=== PATIENT | male | born 1955 | race Caucasian/White ===

== ENCOUNTER → 2017-03-17 | Outpatient (CLI) | payer BC ==
[~2017-03-17] MED LIST: ASPCH81X PO; HYDC25 PO; LISI-725 PO; MCRKUNK; MULT-506 PO; OXYC-57 PO; PRLSR20 PO; SIMV20TA2 PO; ULT/50 PO
--- NOTE | 2017-03-24 06:47 | CODING QUERY NO DIAGNOSIS ---
TREATMENT RENDERED WITHOUT A DIAGNOSIS To promote full compliance with coding requirements relating to patient care, physician participation is requested in all cases of auditing coder uncertainty. Please assist us with providing a diagnosis/symptom for the test(s) below: A diagnosis/symptom was not documented on your Order. A valid diagnosis/symptom is required to bill all insurances. Please remember that we are unable to code a diagnosis of rule out, probable, possible, questionable, or suspected. Tests that require a diagnosis: DOS 03/17 * Synovial fluid crystals DIAGNOSIS: Provider Signature: Date: Thank you Fouzia [facility] Information Management Once completed, please kindly fax back to [phone] For questions please call [phone]
== END | disposition home or self-care (01) ==
LOC: C.LABSPEC 17:02
PROVIDERS: ATTEND Orthopaedic Surgery
DX: M65.841 Other synovitis and tenosynovitis, right hand (principal)

== ENCOUNTER 2019-02-11 08:38 | Inpatient (IN) ==
--- NOTE | 2019-01-15 13:26 | PAT Medication Instructions ---
Medication Instructions Date of Service January 15, 2019 Home Medications aspirin [Aspir-81] 81 mg PO QAM 01/08/19 [History Confirmed 01/08/19] atorvastatin 20 mg PO QAM 01/08/19 [History Confirmed 01/08/19] hydrochlorothiazide 50 mg PO QAM 01/08/19 [History Confirmed 01/08/19] lisinopril 40 mg PO QAM 01/08/19 [History Confirmed 01/08/19] naproxen 500 mg PO BID 01/08/19 [History Confirmed 01/08/19] nebivolol [Bystolic] 5 mg PO QAM 01/08/19 [History Confirmed 01/08/19] omeprazole 20 mg PO BID 01/08/19 [History Confirmed 01/08/19] pregabalin [Lyrica] 75 mg PO QPM 01/08/19 [History Confirmed 01/08/19] ASK your surgeon for instructions naproxen 500 mg PO BID 01/08/19 [History Confirmed 01/08/19] DO NOT take the morning of surgery hydrochlorothiazide 50 mg PO QAM 01/08/19 [History Confirmed 01/08/19] lisinopril 40 mg PO QAM 01/08/19 [History Confirmed 01/08/19] Take morning of surgery With a small sip of water, OTHERWISE NOTHING TO EAT OR DRINK AFTER MIDNIGHT: aspirin [Aspir-81] 81 mg PO QAM 01/08/19 [History Confirmed 01/08/19] atorvastatin 20 mg PO QAM 01/08/19 [History Confirmed 01/08/19] nebivolol [Bystolic] 5 mg PO QAM 01/08/19 [History Confirmed 01/08/19] omeprazole 20 mg PO BID 01/08/19 [History Confirmed 01/08/19] Take evening before surgery omeprazole 20 mg PO BID 01/08/19 [History Confirmed 01/08/19] pregabalin [Lyrica] 75 mg PO QPM 01/08/19 [History Confirmed 01/08/19] Other Notes If you have any questions please call us at [phone] or [phone] or [phone] or [phone]
--- NOTE | 2019-01-16 09:11 | Anesthesiology Consultation ---
Date of Service January 16, 2019 Assessment & Plan (1) Encounter for pre-operative examination: - Awaiting review preop testing (labs, EKG, CXR). - Awaiting surgeon-ordered PCP preop evaluation (SUHAS Arboleda). Chart Review Chart Review: Patient seen in Pre Admission Testing Teaching & Discussion Pre-Anesthesia Teaching/Discussion Notes: Instructed NPO after midnight before surgery,except medications with 15 cc of water. Medication instructions provided according to the PAT guidelines. History Surgery Operation Date: 02/11/19 07:00 Proposed Procedures p Right Total Knee Revision Arthroplasty - Cristian Adan DO Height/Weight Height: 5 ft 8 in Weight: 111.9 kg Allergies Allergy/AdvReac Type Severity Reaction Status Date / Time No Known Allergies Verified 01/08/19 08:30 Medications Home Medications Medication Instructions Recorded Confirmed Last Taken aspirin [Aspir-81] 81 mg PO QAM 01/08/19 01/08/19 Unknown atorvastatin 20 mg PO QAM 01/08/19 01/08/19 Unknown hydrochlorothiazide 50 mg PO QAM 01/08/19 01/08/19 Unknown lisinopril 40 mg PO QAM 01/08/19 01/08/19 Unknown naproxen 500 mg PO BID 01/08/19 01/08/19 Unknown nebivolol [Bystolic] 5 mg PO QAM 01/08/19 01/08/19 Unknown omeprazole 20 mg PO BID 01/08/19 01/08/19 Unknown pregabalin [Lyrica] 75 mg PO QPM 01/08/19 01/08/19 Unknown Past Medical History Medical History GERD (gastroesophageal reflux disease) occasional Hyperlipidemia Hypertension Obesity Osteoarthritis Exercise / Class Metabolic Activity II 4-5 Yardwork/Stairs/Walk up hill (one flight of stairs (no chest pain/no sob)) Past Family History Family History Other No significant family history Past Surgical History Surgical History History of carpal tunnel release RT/LEFT History of colonoscopy History of hand surgery TENDON REPAIR RT INDEX FINGER History of tonsillectomy and adenoidectomy History of total knee replacement RT Hx of shoulder surgery RT SHOULDER PARTIAL REPLACEMENT Past Anesthesia History No Hx of Anesthesia Complications (except PONV) and No Family Hx of Anesthesia Complications History of PONV History of PONV and Hx of Motion Sickness Social History Smoking Status: Former smoker tobacco type: cigarettes Do You Dip or Chew Tobacco: No Smoking End Date: QUIT OVER 40 YEARS AGO Hx Alcohol Use: Yes Alcohol type: wine alcohol intake frequency: a few times a month Hx Substance Use: No substance use type: does not use Review of Systems Occasional reflux. Patient denies chest pain, shortness of breath, dyspnea on exertion, cough, wheezing, palpitations. Physical Exam Vital Signs VITALS BP 146/88 P 50 (chronic, asymptomatic per patient) TEMP 98.5 SP02 96%RA RESP 16 PHYSICAL Full neck and c-spine range of motion. Full TMJ range of motion. TMD 3.5 finger breaths Mallampati Score 2 Dentition: intact, several crowns "all over" Lungs: clear throughout to auscultation Cardiac: + bradycardia, regular rhythm, no murmurs noted Spine: normal Carotid arteries: negative bruit Extremities: no edema
--- NOTE | 2019-01-16 09:48 | XRay Report ---
XR chest Pre-admission PA/Lat HISTORY: Preop. COMPARISON: Chest 10/18/2011. FINDINGS: The lungs are clear. Cardiac silhouette is normal in size. No pleural effusions. No pneumot horax. A right shoulder prosthesis is partially visualized. IMPRESSION: No acute process. Electronically signed by: Lionel Fiore M.D. 01/16/2019 9:47 AM
[2019-01-16 10:39] LABS: Basophils # (auto) 0.03 K/uL (0-0.2); Basophils % (auto) 0.4 %; Eosinophils # (auto) 0.53 K/uL (0-0.5); Eosinophils % (auto) 6.3 %; Hematocrit (blood only) 45.5 % (42-52); Hemoglobin 15.2 g/dL (14.0-18.0); Immature Granulocytes # (auto) 0.02 K/uL (0.00-0.02); Immature Granulocytes % (auto) 0.2 %; Lymphocytes # (auto) 2.36 K/uL (1.2-3.4); Lymphocytes % (auto) 28.2 %; Mean Corpuscular Hemoglobin 30.9 pg (25-34); Mean Corpuscular Hgb Conc 33.4 g/dL (32-36); Mean Corpuscular Volume 92.5 fL (80-100); Mean Platelet Volume 10.4 fL (7.4-10.4); Monocytes # (auto) 0.61 K/uL (0.11-0.59); Monocytes % (auto) 7.3 %; Neutrophils # (auto) 4.81 K/uL (1.4-6.5); Neutrophils % (auto) 57.6 %; Platelet Count 286 K/uL (130-400); RDW Coefficient of Variation 13.2 % (11.5-14.5); Red Blood Count 4.92 M/uL (4.7-6.1); White Blood Count 8.36 K/uL (4.8-10.8)
[2019-01-16 10:44] LABS: Albumin Level 3.8 gm/dl (3.4-5.0); BUN Creatinine Ratio 17.4 (10-20); Calcium 9.1 mg/dl (8.5-10.1); Creatinine Clr Calc Pharmacy 74.6 ml/min; Est GFR (Non-African American) 62.1; Potassium 3.7 mmol/L (3.5-5.1)
[2019-01-16 10:48] LABS: Partial Thromboplastin Time 26.5 Seconds (21.0-31.0); Prothrombin Time 10.1 Seconds (9.0-12.0)
[2019-01-16 10:51] LABS: Appearance Urine Clear (Clear); Bilirubin Urine Negative (Negative); Blood Urine Negative (Negative); Color Urine Yellow; Glucose Urine UA Negative (Negative); Ketones Urine Negative (Negative); Leukocyte Esterase Urine Negative (Negative); Nitrite Urine Negative (Negative); Protein Urine Negative (Negative); Specific Gravity Urine 1.025 (1.000-1.030); Urobilinogen Urine Negative (Negative)
[2019-01-16 11:14] LABS: Estimated Average Glucose 120 mg/dl; Hemoglobin A1C 5.8 % (4.5-5.6)
--- NOTE | 2019-02-10 13:04 | History & Physical Report ---
Date of Service February 10, 2019 Assessment & Plan (1) Failed total right knee replacement: I have indicated the patient for revision right total knee replacement, poly exchange, possible revision of femur and tibial components. The risks, benefits and complications of surgery were explained to the patient which include but not limited to infection, acute blood loss, DVT/PE, injury to nerves, vessels, bone, soft tissue, arthrofibrosis, chronic pain, failure of the prosthesis, knee dislocation, leg length discrepancy, need for additional surgery, cardiac and pulmonary events and . The patient wished to proceed with surgery and informed consent was obtained at this time. We will plan for ASA BID post-operatively for DVT prophylaxis. Upon discharge the patient will be discharged home with home health services. Appropriate clearances by PCP were obtained. 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 The patient continues to demonstrate "jumping" of his post and giving out with pain. The patient has failed outpatient conservative treatments to this point which included NSAIDs, bracing and PT. The patient's pain and limited function have progressed to the point where they severely hinder their activities of daily living and they no longer tolerate exercise programs. They are requesting to proceed with revision total knee replacement surgery. Allergies Allergy/AdvReac Type Severity Reaction Status Date / Time No Known Allergies Verified 01/08/19 08:30 Home Medications Home Medications Medication Instructions Recorded Confirmed Type aspirin [Aspir-81] 81 mg PO QAM 01/08/19 01/08/19 History atorvastatin 20 mg PO QAM 01/08/19 01/08/19 History hydrochlorothiazide 50 mg PO QAM 01/08/19 01/08/19 History lisinopril 40 mg PO QAM 01/08/19 01/08/19 History naproxen 500 mg PO BID 01/08/19 01/08/19 History nebivolol [Bystolic] 5 mg PO QAM 01/08/19 01/08/19 History omeprazole 20 mg PO BID 01/08/19 01/08/19 History pregabalin [Lyrica] 75 mg PO QPM 01/08/19 01/08/19 History Past Med/Surg History Medical History GERD (gastroesophageal reflux disease) occasional Hyperlipidemia Hypertension Obesity Osteoarthritis Surgical History History of carpal tunnel release RT/LEFT History of colonoscopy History of hand surgery TENDON REPAIR RT INDEX FINGER History of tonsillectomy and adenoidectomy History of total knee replacement RT Hx of shoulder surgery RT SHOULDER PARTIAL REPLACEMENT Family History Other No significant family history Social History Preferred Language: Maori Communication Ability: Effective Energy Efficient Site Manager Required: No Beliefs That Will Affect Care: None Current Living Situation: Alone Other Information That Helps Us Care for You: No Feels Safe at Home: Yes Safety Concerns: Feels Safe At This Time Smoking Status: Former smoker Tobacco Type: cigarettes ; Do You Dip or Chew Tobacco: No ; Smoking End Date: QUIT OVER 40 YEARS AGO ; Second Hand Exposure: No ; Tobacco Cessation Education Requested by Patient: No Hx Alcohol Use: Yes Alcohol type: wine Hx Substance Use: No Review of Systems Review of Systems: All systems reviewed & are unremarkable except as noted in HPI & below Constitutional: as per Subjective / HPI Physical Exam Physical Exam: RLE NVSI +EHL/FHL/TA/GS SILT grossly, +2 DP pulse, compartments soft NT, incision cdi, +instability with mechanical symptoms and subluxation of the knee in relationship to the post, locking with spontaneous reduction with hyperflexion, +mechanical/audible clunk, ROM 0-135 degrees of flexion Constitutional: WD/WN, vitals as above Eyes: PERRL, conjunctivae normal, anicteric sclerae ENMT: external ear and nose normal, oropharynx normal Neck: trachea midline, no thyromegaly Respiratory: normal respiratory effort, lungs clear to auscultation Cardiovascular: RRR, no murmur, no edema Gastrointestinal (Abdomen): normal bowel sounds, soft, nontender, no hepatosplenomegaly Musculoskeletal: no cyanosis or clubbing, extremities motor strength 5/5 Skin: no rashes, warm and dry Neurologic: patellar DTR's 2+ bilat, sensation intact Psychiatric: A+Ox3, euthymic affect Lymphatic: no cervical or axillary lymphadenopathy Results & Data Diagnostic Findings Multiple views of the knee demonstrates well aligned well fixed total knee prosthesis without evidence of loosening, subsidence, fracture or dislocation.
[~2019-02-11 08:38] MED LIST changes: +ACETAMINOPHEN 500 MG TAB PO SCH; -ASPCH81X PO; +BUPIVACAINE 0.5 % 5 MG/1 ML PF 10ML VIAL ONE; +CEFAZOLIN 2000MG 2,000 MG/15 ML SYR IV SCH; +CeleBREX 200 MG CAP PO SCH; +FAMOTIDINE 20 MG TAB PO SCH; +GABAPENTIN 600 MG DOSE PO SCH; -HYDC25 PO; -LISI-725 PO; +LR 15ML/HR IV SCH; -MCRKUNK; +METOCLOPRAMIDE HCL 10 MG TABLET PO SCH; -MULT-506 PO; -OXYC-57 PO; -PRLSR20 PO; +ROPIVACAINE 0.5% 5 MG/ML 30 ML VIAL ONE; +ROPIVACAINE 0.5% HCL/PF 150 MG, BUPIVACAINE 0.5% MPF 30 ML, EPINEPHrine 30MG/30ML (OR U... INFIL SCH; -SIMV20TA2 PO; +TRANEXAMIC ACID 1,000 MG **IV Intra-op IV SCH; +TRANEXAMIC ACID 1,000 MG **IV Pre-op IV SCH; -ULT/50 PO; +dexAMETHasone 4 MG TAB PO SCH
--- NOTE | 2019-02-11 09:03 | History & Physical Bridge Note ---
Date of Service February 11, 2019 History & Physical Bridge Note I have examined the patient, reviewed the History & Physical and in the interval since the performance of the History & Physical I have noted the following changes of clinical significance: no changes noted
[2019-02-11] MEDS ORDERED: TRANEXAMIC ACID / 0.7% NACL 1000MG/100ML BAG IV ONE (09:44)
[2019-02-11] MEDS ORDERED: fentaNYL citrate 100 MCG/2 ML VIAL ONE (11:45)
[2019-02-11] MEDS ORDERED: MIDAZOLAM HCL 1 MG/ML 2ML VIAL ONE (11:45)
[2019-02-11] MEDS ORDERED: BACITRACIN INJ 50,000 UNIT VIAL ONE (12:05)
[2019-02-11] MEDS ORDERED: ORTHO JOINT ANESTHETIC ONE (12:05)
[2019-02-11] MEDS ORDERED: ONDANSETRON INJ 2 MG/ML 2 ML VIAL ONE (13:51)
[2019-02-11] MEDS ORDERED: PROPOFOL IV EMULSION 10 MG/ML 20 ML VIAL IV ONE (13:51)
[2019-02-11] MEDS ORDERED: LIDOCAINE HCL 2% 2 ML VIAL/AMP(20MG/ML) INFIL ONE (13:51)
[2019-02-11] MEDS ORDERED: ePHEDrine sulfate 50 MG/ML AMP IV PRN (13:56)
[2019-02-11] MEDS ORDERED: ATROPINE SULFATE 0.1 MG/ML 10ML SYR IV PRN (13:56)
--- NOTE | 2019-02-11 14:21 | Post Operative Brief Note ---
Immediate Post Op Note v1 Date of Surgery February 11, 2019 Pre & Post Diagnosis Operation Date: 02/11/19 11:40 Pre-Op Diagnosis: Right Total Knee Arthroplasty Recurrent Instability Post-Op Diagnosis: Right Total Knee Arthroplasty Recurrent Instability I identified the patient and participated in the time-out.: Yes Procedure Operation Date: 02/11/19 11:40 Actual Procedures p Right Total Knee Poly Exchange(Right) - Cristian Adan DO Revision of surgical scar Surgeon Cristian Adan DO Entry Examiner Delfin Alfaro Estimated Blood Loss 25 Findings Consistent with Post-Op Diagnosis Fluids 1400 cc LR Specimens tibial articular surface Anesthesia Type Spinal MAC Complications none Disposition Disposition: Recovery Room Overlapping Procedure I was present for: the critical portions of procedure. I was immediately available: during the entire case. Back up surgeon: was not required during procedure.
--- NOTE | 2019-02-11 14:28 | Operative Report ---
Post Operative Report Pre & Post Diagnosis Operation Date: 02/11/19 11:40 Pre-Op Diagnosis: Right Total Knee Arthroplasty Recurrent Instability Post-Op Diagnosis: Right Total Knee Arthroplasty Recurrent Instability I identified the patient and participated in the time-out.: Yes Procedure Operation Date: 02/11/19 11:40 Actual Procedures p Right Total Knee Poly Exchange(Right) - Cristian Adan DO Revision of surgical scar Surgeon Cristian Adan DO Software Implementation Project Manager Delfin Alfaro Estimated Blood Loss 25 Findings Consistent with Post-Op Diagnosis Fluids 1400 cc LR Specimens Tibial articular surface Anesthesia Type Spinal MAC Complications none Disposition Disposition: Recovery Room Indications The patient is a 63 year old male who presents with complaints of recurrent instability and pain of right total knee replacement. The patient continues to demonstrate "jumping" of his post and giving out with pain. The patient has failed outpatient conservative treatments to this point which included NSAIDs, bracing and PT. The patient's pain and limited function have progressed to the point where they severely hinder their activities of daily living and they no longer tolerate exercise programs. They are requesting to proceed with revision total knee replacement surgery. I have indicated the patient for revision right total knee replacement, poly exchange, possible revision of femur and tibial components. The risks, benefits and complications of surgery were explained to the patient which include but not limited to infection, acute blood loss, DVT/PE, injury to nerves, vessels, bone, soft tissue, arthrofibrosis, chronic pain, failure of the prosthesis, knee dislocation, leg length discrepancy, need for additional surgery, cardiac and pulmonary events and . The patient wished to proceed with surgery and informed consent was obtained at this time. We will plan for ASA BID post- operatively for DVT prophylaxis. Upon discharge the patient will be discharged home with home health services. Appropriate clearances by PCP were obtained. Description of Procedure Following induction of spinal anesthesia, a tourniquet was applied to the proximal aspect of the thigh and the patient's right leg was prepped and draped in the usual sterile manner. A timeout was performed and site maylin verified. The limb was exsanguinated with an esmarch bandage and tourniquet was inflated to 300 mmHg. The prior incision was identified and a longitudinal midline incision was made over the anterior knee. Previous surgical scar was excised. Subcutaneous tissue was sharply dissected down to fascia. Electrocautery was used for hemostasis. Next a medial parapatellar arthrotomy was performed. Meticulous removal of hypertrophic synovium and scar tissue was removed with Bovie. The patella was subluxed laterally and the knee was flexed. A dockery retractor was used to expose the synovium above on the anterior aspect of the femur and removed down to bone. Next, the anterior fat pad was removed to aid in visualization. The medial face of the tibia was cleared of soft tissue first with a bovie and a vásquez elevator. This tissue was retracted posteriorly using a blunt hohmann. Once adequate access was obtained to the total knee prosthesis we removed the tibial articular surface. There was a fracture of the tip of the tibial articular surface post. The fracture post piece was still located in the notch and removed. The tibial tray was cleared of all soft tissue and debris. We carefully examined both the tibia and femur prosthesis which were found to be well fixed and without signs of wear. A size 15 PS tibial articular surface was trialed. Sequential trialing of tibial sizes was performed, increasing to a tibial articular surface size 18 PS. Varus-valgus balance was assessed in 0 degrees of extension and 30, 60 and 90 degrees of flexion. A final tibial articular surface size 18 PS was chosen. Access was gained to the patella and meticulous removal of fibrous soft tissue surrounding the patella button was removed. The patella was cleared of any remaining osteophytes utilizing the rongour. The patella button was found to be stable and well fixed without signs of wear. The knee was found to be well balanced, well aligned, with excellent patellar tracking. The trial tibial articular surface was removed and the knee was irrigated with copious amounts of sterile saline solution with bacitracin. Ortho mix was injected into the posterior capsule at this time. Access to the proximal tibia was once again obtained utilizing two bent hohmann retractors and the final tibial articular surface was inserted. The knee was injected with the remaining Orthomix solution. A bacitracin soak was performed for 3 minutes and the knee was irrigated once more with sterile saline solution mixed with bacitracin. The capsulotomy was closed with #1 Vicryl followed by subcutaneous closure with 2-0 Vicryl suture. Skin closure was performed using gia. Sterile dressings were applied which included Silverlon, Webril and Vargas wrap. The tourniquet was deflated at 57 minutes. The patient was extubated in the OR and transported to the PACU in stable condition. Due to the complex nature of the procedure, the entire surgery was performed with the operational assistance of Delfin alfaro PA-C. The assistant center manager, under direct supervision, was involved in the actual performance of all aspects of the surgical procedure including patient positioning, hemostasis, tissue retraction, instrument management and wound closure. I attest to the content of the Intraoperative Record and any orders documented therein. Any exceptions are noted below.
--- NOTE | 2019-02-11 15:03 | XRay Report ---
XR knee RT 1 or 2V routine CLINICAL HISTORY: Postoperative evaluation. COMPARISON: Knee radiographs January 16, 2009. FINDINGS: Alignment of the right knee arthroplasty is anatomic. There is no fracture or unexpected r adiopaque foreign body. There are skin gia. IMPRESSION: Expected findings following total right knee arthroplasty. Electronically signed by: Rex Carlisle M.D. 02/11/2019 3:01 PM
--- NOTE | 2019-02-11 15:30 | Anesthesiology Progress Note ---
Date of Service February 11, 2019 Anesthesia Post Procedure Vital Signs Vital Signs: Temp Pulse Resp BP Pulse Ox 02/11/19 15:25 36.7 C 59 L 18 120/72 94 02/11/19 15:15 61 18 127/79 94 02/11/19 15:05 61 18 117/79 93 02/11/19 14:55 61 18 122/73 94 02/11/19 14:45 63 18 116/76 94 02/11/19 14:38 36.6 C 66 18 107/66 96 Transfer of Care Handoff Completed per policy Notes Mental Status: alert / awake / arousable Patient Amnestic to Procedure: Yes Nausea / Vomiting: adequately controlled Pain: adequately controlled Airway Patency, RR, SpO2: stable & adequate BP & HR: stable & adequate Hydration State: stable & adequate Anesthetic Complications: no major complications apparent
[2019-02-11] MEDS ORDERED: NALOXONE HCL 0.4 MG/1 ML VIAL/CARP IV PRN (15:58)
[2019-02-11] MEDS ORDERED: OXYCODONE HCL IR 5 MG TAB (IMMEDIATE RELEASE) PO PRN (15:58)
[2019-02-11] MEDS ORDERED: bisacodyL 10 MG SUPP PR PRN (15:58)
[2019-02-11] MEDS ORDERED: HYDROmorphone INJ 0.5 MG/0.5 ML SYR IV PRN (15:58)
[2019-02-11] MEDS ORDERED: ONDANSETRON INJ 2 MG/ML 2 ML VIAL IV PRN (15:58)
[2019-02-11] MEDS ORDERED: METOCLOPRAMIDE HCL INJ 5 MG/ML 2 ML VIAL IV PRN (15:58)
[2019-02-11] MEDS ORDERED: MAGNESIUM HYDROXIDE SUSP 30 ML UDC PO PRN (15:58)
[2019-02-11] MEDS ORDERED: SODIUM CHLORIDE 0.9% 1000ML 1,000 ML IV SCH (15:58)
[2019-02-11] MEDS: KETOROLAC TROMETHAMINE 15 MG/ML VIAL IV SCH ×2 (17:17→22:16)
--- NOTE | 2019-02-11 18:42 | Orthopedic Progress Note ---
Date of Service February 11, 2019 Assessment & Plan (1) Failed total right knee replacement: s/p Revision R TKA, poly exchange, revision of surgical scar -ancef x 24 -DVT ppx: SCDs, TEDs, 81 mg ASA BID -WBAT RLE -PT/OT -PO XR demonstrates a well aligned well fixed prothesis without fracture dislocation -am labs -DC planning Subjective Post Operative Progress Note Patient seen in PACU, comfortable, denies complaints, pain well controlled, no acute issues. Still feeling effects of spinal anesthesia Review of Systems Review of Systems: All systems reviewed & are unremarkable except as noted in HPI & below Constitutional: as per Subjective / HPI Physical Exam Physical Exam: RLE PE limited secondary to spinal anesthesia, +2 DP pulse, compartments soft NT, dressing CDI Constitutional: WD/WN, vitals as above Results & Data Vital Signs (Past 12 Hours) Vital Signs Temp Pulse Pulse Resp BP Pulse Ox 02/11/19 18:15 36.7 C 71 18 145/82 H 02/11/19 17:36 68 18 158/89 H 94 02/11/19 15:45 36.5 C 61 18 132/86 93 02/11/19 15:35 62 18 134/75 96 02/11/19 15:25 36.7 C 59 L 18 120/72 94 02/11/19 15:15 61 18 127/79 94 02/11/19 15:05 61 18 117/79 93 02/11/19 14:55 61 18 122/73 94 02/11/19 14:45 63 18 116/76 94 02/11/19 14:38 36.6 C 66 18 107/66 96
[2019-02-11] MEDS: CEFAZOLIN 2000MG 2,000 MG/15 ML SYR IV SCH (20:53)
[2019-02-11] MEDS: ASPIRIN 81 MG ECTAB PO SCH (20:57)
[2019-02-11] MEDS: DOCUSATE SODIUM 100 MG CAP PO SCH (20:58)
[2019-02-11] MEDS: PROTONIX 40MG PO SCH (20:58)
[2019-02-11] MEDS ORDERED: PREGABALIN 75 MG CAP PO SCH (21:00)
[2019-02-11] MEDS: ACETAMINOPHEN 500 MG TAB PO SCH (21:00)
[2019-02-11] MEDS ORDERED: SENNA 8.6 MG TAB PO SCH (21:00)
[2019-02-12] MEDS: CEFAZOLIN 2000MG 2,000 MG/15 ML SYR IV SCH (05:20)
[2019-02-12] MEDS: KETOROLAC TROMETHAMINE 15 MG/ML VIAL IV SCH ×2 (05:20→10:41)
[2019-02-12] MEDS: ACETAMINOPHEN 500 MG TAB PO SCH ×2 (05:20→13:12)
[2019-02-12 05:21] LABS: Hematocrit (blood only) 41.9 % (42-52); Hemoglobin 13.9 g/dL (14.0-18.0); Mean Corpuscular Hgb Conc 33.2 g/dL (32-36); Mean Corpuscular Volume 90.5 fL (80-100); Mean Platelet Volume 10.6 fL (7.4-10.4); Platelet Count 278 K/uL (130-400); RDW Coefficient of Variation 12.8 % (11.5-14.5); RDW Standard Deviation 42.1 fL (36.4-46.3); Red Blood Count 4.63 M/uL (4.7-6.1); White Blood Count 11.71 K/uL (4.8-10.8)
[2019-02-12 05:47] LABS: BUN Creatinine Ratio 19.8 (10-20); Calcium 8.2 mg/dl (8.5-10.1); Creatinine Clr Calc Pharmacy 64.5 ml/min; Est GFR (Non-African American) 52.6; Potassium 3.3 mmol/L (3.5-5.1)
--- NOTE | 2019-02-12 07:50 | Orthopedic Progress Note ---
Date of Service February 12, 2019 Assessment & Plan (1) Failed total right knee replacement: s/p Revision R TKA, poly exchange, revision of surgical scar POD#1 -ancef x 24 -DVT ppx: SCDs, TEDs, 81 mg ASA BID -WBAT RLE -PT/OT -PO XR demonstrates a well aligned well fixed prothesis without fracture dislocation -am labs: hgb 13.9 -DC planning: home with HH Subjective Post Operative Progress Note Patient seen sitting up in bed, comfortable, denies complaints, pain well controlled, no acute issues. Denies F/C/N/V/SOP/CP Review of Systems Review of Systems: All systems reviewed & are unremarkable except as noted in HPI & below Constitutional: as per Subjective / HPI Physical Exam 2 Physical Exam: RLE NVSI +EHL/FHL/TA/GS SILT grossly, +2 DP pulse, compartments soft NT, dressing cdi. Constitutional: WD/WN, vitals as above Results & Data Vital Signs (Past 12 Hours) Vital Signs Temp Pulse Resp BP Pulse Ox 02/12/19 07:26 36.7 C 59 L 18 142/85 H 97 02/12/19 04:15 36.8 C 67 18 146/90 H 97 02/11/19 23:40 36.7 C 79 18 144/75 H 94 Laboratory Results 02/12/19 02/12/19 02/12/19 Range/Units 04:59 04:59 04:59 WBC 11.71 H (4.8-10.8) K/uL RBC 4.63 L (4.7-6.1) M/uL Hgb 13.9 L (14.0-18.0) g/dL Hct 41.9 L (42-52) % MCV 90.5 (80-100) fL MCH 30.0 (25-34) pg MCHC 33.2 (32-36) g/dL RDW Std Deviation 42.1 (36.4-46.3) fL RDW Coeff of Thomas 12.8 (11.5-14.5) % Plt Count 278 (130-400) K/uL MPV 10.6 H (7.4-10.4) fL Sodium 141 (136-145) mmol/L Potassium 3.3 L (3.5-5.1) mmol/L Chloride 109 H (98-107) mmol/L Carbon Dioxide 28 (21-32) mmol/L Anion Gap 4.0 (3-11) BUN 28 H (7-18) mg/dl Creatinine 1.41 H (0.6-1.4) mg/dl Est Cr Clr Drug Dosing 64.5 ml/min Est GFR ( Amer) 61.0 Est GFR (Non-Af Amer) 52.6 BUN/Creatinine Ratio 19.8 (10-20) Glucose 139 H (70-99) mg/dl Calcium 8.2 L (8.5-10.1) mg/dl Hepatitis C Ab Screen Pending Blood Type Antibody Screen Crossmatch 02/11/19 Range/Units 09:00 WBC (4.8-10.8) K/uL RBC (4.7-6.1) M/uL Hgb (14.0-18.0) g/dL Hct (42-52) % MCV (80-100) fL MCH (25-34) pg MCHC (32-36) g/dL RDW Std Deviation (36.4-46.3) fL RDW Coeff of Thomas (11.5-14.5) % Plt Count (130-400) K/uL MPV (7.4-10.4) fL Sodium (136-145) mmol/L Potassium (3.5-5.1) mmol/L Chloride (98-107) mmol/L Carbon Dioxide (21-32) mmol/L Anion Gap (3-11) BUN (7-18) mg/dl Creatinine (0.6-1.4) mg/dl Est Cr Clr Drug Dosing ml/min Est GFR ( Amer) Est GFR (Non-Af Amer) BUN/Creatinine Ratio (10-20) Glucose (70-99) mg/dl Calcium (8.5-10.1) mg/dl Hepatitis C Ab Screen Blood Type O Positive Antibody Screen NEGATIVE Crossmatch See Detail
--- NOTE | 2019-02-12 08:22 | Anesthesiology Progress Note ---
Date of Service February 12, 2019 Anesthesia Post Procedure Vital Signs Vital Signs: Temp Pulse Pulse Resp BP BP Pulse Ox 02/12/19 07:26 36.7 C 59 L 18 142/85 H 97 02/12/19 04:15 36.8 C 67 18 146/90 H 97 02/11/19 23:40 36.7 C 79 18 144/75 H 94 02/11/19 19:17 36.5 C 69 16 144/89 H 95 02/11/19 18:15 36.7 C 71 18 145/82 H 02/11/19 17:36 68 18 158/89 H 94 02/11/19 15:45 36.5 C 61 18 132/86 93 02/11/19 15:35 62 18 134/75 96 02/11/19 15:25 36.7 C 59 L 18 120/72 94 02/11/19 15:15 61 18 127/79 94 02/11/19 15:05 61 18 117/79 93 02/11/19 14:55 61 18 122/73 94 02/11/19 14:45 63 18 116/76 94 02/11/19 14:38 36.6 C 66 18 107/66 96 Pain Intensity Right Leg: Pain Intensity: 1 Notes Mental Status: alert / awake / arousable and participated in evaluation Patient Amnestic to Procedure: Yes Nausea / Vomiting: adequately controlled Pain: adequately controlled Airway Patency, RR, SpO2: stable & adequate BP & HR: stable & adequate Hydration State: stable & adequate Neuraxial Anesthesia: was administered and sensory block resolved Anesthetic Complications: no major complications apparent and Pt Satisfied with anesthetic care
[2019-02-12] MEDS: DOCUSATE SODIUM 100 MG CAP PO SCH (08:45)
[2019-02-12] MEDS: ASPIRIN 81 MG ECTAB PO SCH (08:45)
[2019-02-12] MEDS: PROTONIX 40MG PO SCH (08:46)
[2019-02-12] MEDS ORDERED: MULTIVITAMIN TAB PO SCH (09:00)
[2019-02-12] MEDS ORDERED: ATORVASTATIN 20 MG TAB PO SCH (09:00)
[2019-02-12] MEDS ORDERED: NEBIVOLOL HCL 5 MG TAB PO SCH (09:00)
[2019-02-12] MEDS ORDERED: hydroCHLOROthiazide 25 MG TAB PO SCH (09:00)
[2019-02-12] MEDS ORDERED: lisinopriL 40 MG TAB PO SCH (09:00)
--- NOTE | 2019-02-12 13:54 | Communication Note ---
Date of Service: February 12, [address] Adan. Pt is progressing well with PT. Ambulating independently. Pain controlled. Plan for dc to home today.
[2019-02-12] MEDS ORDERED: CeleBREX 200 MG CAP PO SCH (21:00)
--- NOTE | 2019-02-13 21:12 | Discharge Summary ---
Date of Service February 13, 2019 Admission HPI Per Admitting Provider The patient is a 63 year old male who presents with complaints of recurrent instability and pain of right total knee replacement. The patient continues to demonstrate "jumping" of his post and giving out with pain. The patient has failed outpatient conservative treatments to this point which included NSAIDs, bracing and PT. The patient's pain and limited function have progressed to the point where they severely hinder their activities of daily living and they no longer tolerate exercise programs. They are requesting to proceed with revision total knee replacement surgery. Principal Diagnosis Revision right total knee replacement, poly exchange Discharge Exam RLE NVSI +EHL/FHL/TA/GS SILT grossly, +2 DP pulse, compartments soft NT, dressing cdi. 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 The patient's symptoms have progressed to the point where it has been difficult to perform even normal activities of daily living. I indicated the patient for a revision right total knee arthroplasty, the risks, benefits and complications of the procedure include but not limited to infection, bleeding, damage to bone, nerves, vessels, surrounding soft tissue, may develop blood clots, loss of function, leg length discrepancy, dislocation, failure of the components, loosening of the components, the need for additional surgery and . The patient wished to proceed with surgery at this time and informed consent was obtained. Hospital Course: On 02/11/19 the patient was taken to the operating room, adequate anesthesia administered and underwent a revision right total knee arthroplasty, poly exchange. The patient tolerated the procedure well and was taken to the PACU in stable condition. Post-operatively the patient was started on a DVT ppx medication and given appropriate IV antibiotics. Consults were placed to physical therapy, occupational therapy and case management. On POD#1, the patient did well overnight and their pain was well controlled. Labs were drawn and the Hgb was 13.9. The patient progressed well with PT. Dressings were changed at this time and the incision was clean, dry and intact. The patients hospital stay was relatively uneventful and they were deemed stable by the orthopedic team and consultants to be discharged home with on 02/12/19. Discharge Instructions: Upon discharge the patient may weight bear as tolerates through their operative extremity. They were instructed to keep the incision clean and dry at all times. The patient may shower but should not submerge the incision, avoid bathing, pools and hot tubes. The patient was given a script for pain medication and should take as instructed. The patient was given a script for DVT ppx 81mg ASA BID and should take as directed. The patient was instructed to not drive or travel for long distances until cleared to do so. If the patient develops any symptoms of fevers, chills, nausea, vomiting, increased redness, swelling, pain or drainage from the surgical site, they should notify the office and/or proceed to the nearest emergency room. The patient should follow up in 10-14 days after surgery for their routine post-operative follow-up appointment and should call the office to confirm the date and time. s/p Revision R TKA, poly exchange, revision of surgical scar POD#1 -ancef x 24 -DVT ppx: SCDs, TEDs, 81 mg ASA BID -WBAT RLE -PT/OT -PO XR demonstrates a well aligned well fixed prothesis without fracture dislocation -am labs: hgb 13.9 -DC planning: home with Total Time Total Time Spent Total Time Spent (In Minutes): 30 minutes Discharge Plan Discharge Items Patient Disposition: Home - Home Health Services Reason For Visit: RIGHT KNEE MECHANICAL LOOSENING OF OTHER INTERNAL Discharge Diagnosis: Revision right total knee replacement Condition on Discharge: Good Activity: Per Instructions section Lifting: Wait until after follow-up appointment Bathing: Keep incision dry Bathing Comment: No bathing, pools or hot tubs. Sexual Activity: Wait until after follow-up appointment Exercise/Sports: Wait until after follow-up appointment Driving/Machine Use: No driving Weightbearing: Full weightbearing Non-emergency contact: Primary Care Provider and Surgeon Call non-emergency contact if: you have any medication questions, your symptoms worsen, your pain is not controlled, your pain is worsening, your pain is unusual for you, your pain is concerning for you, you have a fever, your temperature is above 101, your wound has increased redness, your wound has increased drainage and your wound pain has increased Follow-up/Referrals: Yelena Nguyễn CRNP [Primary Care Provider] - Diet: Regular Addtl Attending Provider Instructions: ACTIVITY RECOMMENDATIONS: SELF CARE INSTRUCTIONS AFTER TOTAL KNEE REPLACEMENT A. You may need to continue a physical therapy program after discharge from the hospital. There are several options available to you. Your doctor will assist you in selecting the best one for you. 1. An out-patient facility 2 to 3 times a week for therapy or home therapy. 2. Continue working on all exercises taught to you in the hospital. Your goals should be to increase bending of your knee to 90 degrees and beyond and to fully straighten your knee. B. You may progress at your own pace from walking with a walker or crutches to a cane; then to no assistive devices. C. Make walking a part of your daily routine. Be up as much as comfortable with rest periods throughout the day. Rest with leg elevation is very important. Use the ice wrap frequently for the first 3-4 weeks. D. There are no restrictions on activities. You may ride in a car, shop, participate in claims investigator and all social activities. E. Wear the long elastic stockings (DEREK hose) 20 hours a day for 2 weeks after surgery. They can be removed several times a day for laundering and for a bath. F. You may shower, no tub baths until cleared by your doctor. SPECIAL CARE INSTRUCTIONS: VERY IMPORTANT TO READ AND REVIEW A. There are a few signs you need to watch for after you are home. Call [facility] if you notice any of the followin. Increased severe knee pain. Some pain is expected especially when you exercise. 2. Increased swelling in your leg or knee; pain or swelling of the calf muscle in either lower leg. 3. Any fluid drainage from the incision. 4. Shortness of breath or chest pain. B. Please call [facility] at if you have any concerns or questions about your operation or recovery. The doctor or his nurse will return your call promptly. C. You must take antibiotics before dental work, bladder, bowel or other surgery. Your doctor will provide you with a permanent care to carry describing this precaution. IMPORTANT: * REMEMBER TO TAKE ASPIRIN, 81 MG, TWICE DAILY FOR 4 WEEKS UNLESS OTHERWISE DIRECTED. THIS IS YOUR BLOOD THINNER. * HIGH RISK PATIENTS MAY BE PRESCRIBED A STRONGER BLOOD THINNER. THIS WILL BE PROVIDED AT DISCHARGE. * CALL IF INCREASED PAIN, REDNESS, DRAINAGE OR FEVER GREATER THAT 101. * WEAR DEREK HOSE 20 HOURS PER DAY FOR 2 WEEKS. * YOU MAY HAVE A LARGE BAND-AID LIKE DRESSING (SILVERON). THIS WILL REMAIN ON YOUR INCISION FOR 7 DAYS, THEN CAN BE REMOVED. IF INCISION IS LEAKING THROUGH DRESSING, CALL THE OFFICE . FOLLOW UP VISIT: If appointment is not already scheduled: Please call [facility] to make a follow-up appointment for 2 weeks after your surgery at . Pending Studies at Discharge: No Stand-Alone Forms: My [facility], Opioid Pain Management, Smoking Cessation Medications and DC Order Prescriptions: New acetaminophen [Tylenol Extra Strength] 500 mg Tablet 1,000 mg PO Q8 PRN (Reason: pain) Qty: 90 RF: 0 celecoxib [Celebrex] 200 mg Capsule 200 mg PO BID PRN (Reason: pain/inflammation) Qty: 28 RF: 0 aspirin [Ecotrin Low Strength] 81 mg Tablet,Delayed Release (Dr/Ec) 81 mg PO BID 28 Days Qty: 56 RF: 0 oxycodone 5 mg Tablet 5 mg PO Q6H MDD 6 tabs PRN (Reason: pain) Qty: 30 RF: 0 sennosides [Senokot] 8.6 mg Tablet 17.2 mg PO HS PRN (Reason: constipation) Qty: 28 RF: 0 Continued atorvastatin [Lipitor] 20 mg Tablet 20 mg PO QAM RF: 0 hydrochlorothiazide 50 mg Tablet 50 mg PO QAM RF: 0 lisinopril 40 mg Tablet 40 mg PO QAM RF: 0 pregabalin [Lyrica] 75 mg Capsule 75 mg PO QPM RF: 0 Bystolic 5 mg Tablet 5 mg PO QAM RF: 0 omeprazole 20 mg Tablet,Delayed Release (Dr/Ec) 20 mg PO BID RF: 0 Discontinued aspirin [Aspir-81] 81 mg Tablet,Delayed Release (Dr/Ec) 81 mg PO QAM RF: 0 naproxen 500 mg Tablet 500 mg PO BID RF: 0 Discharge Orders: Discharge Order (Routine); Ordered 02/12/19 Ordered By: Brett Sullivan/Other Patient Handouts: Surgery Prevent DVT After, Replacement Knee Home After, Test A1C Diabetes Ch, A1C Admission Data Admit Date/Time: 02/11/19 14:39 Attending Provider: Cristian Adan Admit Provider: Cristian Adan Primary Care Provider: Yelena Nguyễn Other Interventions: Discharge Summary Assessment (RN) Last Done: 02/12/19 16:19 DC Date/Time DO NOT enter until pt leaves facility: 02/12/19 16:20
== END 2019-02-12 16:20 | disposition home health service (06) | DRG 468 ==
LOC: ASU 08:38 → 3E 14:39

== ENCOUNTER 2021-06-15 07:22 | Inpatient (IN) ==
--- NOTE | 2021-05-27 15:28 | PAT Medication Instructions ---
Medication Instructions Date of Service May 27, 2021 Home Medications Medication Instructions Recorded sennosides 8.6 mg tablet (Senokot) 17.2 mg PO HS PRN #28 tab 02/11/19 albuterol sulfate 90 mcg/actuation 1 inh INHALATION QID PRN #8.5 g 05/22/20 aerosol inhaler fluticasone 250 mcg-salmeterol 50 1 inh INHALATION BID #60 ea 10/16/20 mcg/dose blistr powdr for inhalation (Advair Diskus) atorvastatin 20 mg tablet (Lipitor) 20 mg PO QAM hydrochlorothiazide 50 mg tablet 50 mg PO QAM lisinopril 40 mg tablet 40 mg PO QAM nebivolol 5 mg tablet (Bystolic) 5 mg PO QAM omeprazole 20 mg tablet,delayed release 20 mg PO QAM pregabalin 75 mg capsule (Lyrica) 75 mg PO QPM sennosides 8.6 mg tablet (Senokot) 17.2 mg PO HS PRN aspirin 81 mg tablet,delayed release (Adult Low Dose Aspirin) 81 mg PO QAM docusate sodium 100 mg capsule 200 mg PO HS multivitamin (Daily Multi-Vitamin) 1 tab PO QAM albuterol sulfate 90 mcg/actuation aerosol inhaler 1 inh INHALATION QID PRN meloxicam 15 mg tablet 15 mg PO QAM fluticasone 250 mcg-salmeterol 50 mcg/dose blistr powdr for inhalation (Advair Diskus) 1 inh INHALATION BID ASK your surgeon for instructions meloxicam 15 mg tablet 15 mg PO QAM ASK your prescriber and surgeon aspirin 81 mg tablet,delayed release (Adult Low Dose Aspirin) 81 mg PO QAM DO NOT take the morning of surgery hydrochlorothiazide 50 mg tablet 50 mg PO QAM lisinopril 40 mg tablet 40 mg PO QAM docusate sodium 100 mg capsule 200 mg PO HS multivitamin (Daily Multi-Vitamin) 1 tab PO QAM Take morning of surgery With a small sip of water, OTHERWISE NOTHING TO EAT OR DRINK AFTER MIDNIGHT: atorvastatin 20 mg tablet (Lipitor) 20 mg PO QAM nebivolol 5 mg tablet (Bystolic) 5 mg PO QAM omeprazole 20 mg tablet,delayed release 20 mg PO QAM albuterol sulfate 90 mcg/actuation aerosol inhaler 1 inh INHALATION QID PRN (use if needed; please bring rescue inhaler with you to hospital day of surgery if possible) fluticasone 250 mcg-salmeterol 50 mcg/dose blistr powdr for inhalation (Advair Diskus) 1 inh INHALATION BID Take evening before surgery pregabalin 75 mg capsule (Lyrica) 75 mg PO QPM sennosides 8.6 mg tablet (Senokot) 17.2 mg PO HS PRN (if needed) docusate sodium 100 mg capsule 200 mg PO HS albuterol sulfate 90 mcg/actuation aerosol inhaler 1 inh INHALATION QID PRN (if needed) fluticasone 250 mcg-salmeterol 50 mcg/dose blistr powdr for inhalation (Advair Diskus) 1 inh INHALATION BID Other Notes If you have any questions please call us at [phone] or [phone] or [phone] or [phone]
--- NOTE | 2021-06-01 11:28 | Anesthesiology Consultation ---
Date of Service June 01, 2021 Assessment & Plan (1) Encounter for pre-operative examination: Chart Review Chart Review: Acceptable Risk for Surgery (pending surgeon ordered PCP clearance and preop Covid testing results ) and Patient seen in Pre Admission Testing -Awaiting surgeon ordered PCP clearance 06/09/21 Hx of PONV- discussed scop patch and IV anti-nausea medications- patient would like to wait to discuss with anesthesiologist DOS Per PAT appt on 06/01/21, patient denies any recent travel or large group activities. No known Covid positive exposures or Covid related symptoms. No known Covid infection in the past 90 days. Pt is vaccinated for Covid Preop Covid testing scheduled 06/11/21 = will await results. Educated on importance of self quarantining, social distancing and wearing mask in public for the patient one week prior to surgery and after Covid testing done Last seen by pulmonology 05/22/20= seen for follow-up on shortness of breath on exertion and exertional wheezing. PFTs demonstrated mild restriction likely secondary to body habitus however there is some reversibility with bronchodilators. Likely has component of deconditioning. Possible asthmapatient's exhaled nitric oxide is borderline and he did demonstrate reversible restriction in his PFTs. May be consistent with asthmatic phenotype. Would recommend pursuing trial of inhaled corticosteroid long-acting beta agonist with as needed short-acting beta agonist and clinical follow-up. Follow-up in 3 months. Exercise and weight loss were recommended. Teaching & Discussion Pre-Anesthesia Teaching/Discussion Notes: Instructed NPO after midnight before surgery,except medications with 15 cc of water. Medication instructions p rovided according to the PAT guidelines. History Surgery Operation Date: 06/15/21 07:45 Proposed Procedures p L2-S1 Decompression and Fusion, Spinal Cord Monitoring - Yifan Reece, Height/Weight Height: 5 ft 8 in Weight: 99.1 kg Allergies Allergy/AdvReac Type Severity Reaction Status Date / Time No Known Allergies Verified 05/27/21 13:31 Medications Home Medications Medication Instructions Recorded Confirmed Last Taken atorvastatin 20 mg tablet (Lipitor) 20 mg PO QAM 01/08/19 05/27/21 02/11/19 06:00 hydrochlorothiazide 50 mg tablet 50 mg PO QAM 01/08/19 05/27/21 02/10/19 06:00 lisinopril 40 mg tablet 40 mg PO QAM 01/08/19 05/27/21 02/10/19 06:00 nebivolol 5 mg tablet (Bystolic) 5 mg PO QAM 01/08/19 05/27/21 02/11/19 06:00 omeprazole 20 mg tablet,delayed 20 mg PO QAM 01/08/19 05/27/21 02/11/19 06:00 release pregabalin 75 mg capsule (Lyrica) 75 mg PO QPM 01/08/19 05/27/21 02/10/19 18:00 sennosides 8.6 mg tablet (Senokot) 17.2 mg PO HS PRN #28 tab 02/11/19 05/27/21 Unknown aspirin 81 mg tablet,delayed 81 mg PO QAM 12/05/19 05/27/21 Unknown release (Adult Low Dose Aspirin) docusate sodium 100 mg capsule 200 mg PO HS cap 12/05/19 05/27/21 Unknown multivitamin (Daily Multi-Vitamin) 1 tab PO QAM 12/05/19 05/27/21 Unknown albuterol sulfate 90 mcg/actuation 1 inh INHALATION QID PRN #8.5 g 05/22/20 05/27/21 Unknown aerosol inhaler meloxicam 15 mg tablet 15 mg PO QAM 05/22/20 05/27/21 Unknown fluticasone 250 mcg-salmeterol 50 1 inh INHALATION BID #60 ea 10/16/20 05/27/21 Unknown mcg/dose blistr powdr for inhalation (Advair Diskus) Past Medical History Medical History Asthma Possible per pulm - trialing inhalers Recent weight loss - improved breathing issues significantly- does not need inhalers GERD (gastroesophageal reflux disease) Occasional- controlled with Omeprazole Hyperlipidemia Hypertension Obesity Osteoarthritis RBBB Sinus bradycardia Does not have to see cardio No dizziness or near syncope/syncope Exercise / Class Metabolic Activity II 4-5 Yardwork/Stairs/Walk up hill (one flight of stairs - no chest pain or SOB ) Past Family History Family History Mother Heart disease Past Surgical History Surgical History History of carpal tunnel release RT/LEFT History of colonoscopy History of hand surgery TENDON REPAIR RT INDEX FINGER History of tonsillectomy and adenoidectomy History of total knee replacement RT. Revision 02/11/2019: L3-L4 x 1 attempt + PNB. No issues per anesthesia progress note. Hx of hand surgery left > bone spur removed Hx of shoulder surgery RT SHOULDER PARTIAL REPLACEMENT Past Anesthesia History No Hx of Anesthesia Complications (with exception to PONV ) and No Family Hx of Anesthesia Complications History of PONV History of PONV and Hx of Motion Sickness Social History Smoking Status: Former smoker tobacco type: cigarettes Do You Dip or Chew Tobacco: No Smoking End Date: 40 yrs Hx Alcohol Use: Yes Alcohol type: wine alcohol intake frequency: holidays/special occasions only Hx Substance Use: No substance use type: does not use Review of Systems Hx of snoring- hx of witnessed apnea (in the past)- no hx of sleep study Patient denies chest pain, shortness of breath, dyspnea on exertion, cough, wheezing, palpitations. No hx of seizures, stroke, ID. No hx of blood clots or blood transfusions Physical Exam Vital Signs VITALS BP 133/79 P 56 TE 98.3MP SP02 95% RESP 16 Constitutional no acute distress ENMT Mouth: no TMJ clicking Thyromental Distance: < 3.5 Finger Breadths (3.0) Mallampati Class: II Permanent bridge and crowns to side teeth Neck + limited neck extension Respiratory normal respiratory effort; no respiratory distress Auscultation: lungs clear to auscultation bilaterally; no wheezes Cardiovascular Rate/Rhythm: regular rate and regular rhythm Heart Sounds: no murmur Vessels: no carotid bruit Musculoskeletal Spine: + pain with cervical ROM Extremities: extremities normal to inspection Chronic neck, back and shoulder pain Psychiatric Orientation: alert Lab Results Anesthesia Preop Results Results Anesthesia Widget: WBC 6.84 K/uL (4.8-10.8) 06/01/21 Hgb 15.2 g/dL (14.0-18.0) 06/01/21 Hct 44.6 % (42-52) 06/01/21 Plt 291 K/uL (130-400) 06/01/21 Na 142 mmol/L (136-145) 06/01/21 K 3.4 mmol/L (3.5-5.1) L 06/01/21 Cl 104 mmol/L (98-107) 06/01/21 CO2 31 mmol/L (21-32) 06/01/21 BUN 18 mg/dl (6-23) 06/01/21 Creat 1.23 mg/dl (0.6-1.4) 06/01/21 Glucose Level 83 mg/dl (70-99(Fasting)) 06/01/21 PT 10.8 Seconds (9.0-12.0) 06/01/21 PTT 27.8 Seconds (21.0-31.0) 06/01/21 INR 1.0 (0.9-1.1) 06/01/21 Urine Color Yellow 06/01/21 Urine Appearance Clear (Clear) 06/01/21 Urine pH 5.0 (4.5-7.5) 06/01/21 Urine Specific [place] 1.017 (1.000-1.030) 06/01/21 Urine Protein Negative (Negative) 06/01/21 Urine Glucose (UA) Negative (Negative) 06/01/21 Urine Ketones Negative (Negative) 06/01/21 Urine Blood Negative (Negative) 06/01/21 Urine Nitrite Negative (Negative) 06/01/21 Urine Bilirubin Negative (Negative) 06/01/21 Urine Urobilinogen Negative (Negative) 06/01/21 Urine Leukocyte Esterase Negative (Negative) 06/01/21 Blood Type O Positive 06/01/21 Antibody Screen NEGATIVE 06/01/21 Testing Laboratory Results Electrocardiogram Date: 06/01/21 Findings: + SB @ (52bpm) RBBB. Chest X-Ray Date: 06/01/21 Atelectasis without evidence of acute abnormality Echocardiogram Date: 01/13/20 EF: 65-70% LV Function: normal RWMA: + none Other Findings: + LVH (mild/concentric ) Valvular Disease: + MR (mild ) LA mildly dilated. Mild TR. RVSP is elevated at 30-40mmHg
[~2021-06-15 07:22] MED LIST changes: -BUPIVACAINE 0.5 % 5 MG/1 ML PF 10ML VIAL ONE; -CEFAZOLIN 2000MG 2,000 MG/15 ML SYR IV SCH; -FAMOTIDINE 20 MG TAB PO SCH; +GABAPENTIN 300 MG CAP PO SCH; -GABAPENTIN 600 MG DOSE PO SCH; -METOCLOPRAMIDE HCL 10 MG TABLET PO SCH; -ROPIVACAINE 0.5% 5 MG/ML 30 ML VIAL ONE; -ROPIVACAINE 0.5% HCL/PF 150 MG, BUPIVACAINE 0.5% MPF 30 ML, EPINEPHrine 30MG/30ML (OR U... INFIL SCH; -TRANEXAMIC ACID 1,000 MG **IV Intra-op IV SCH; -TRANEXAMIC ACID 1,000 MG **IV Pre-op IV SCH; +ceFAZolin 2000MG 2,000 MG/15 ML SYR IV SCH; -dexAMETHasone 4 MG TAB PO SCH
[2021-06-15] MEDS ORDERED: DEXAMETHASONE SOD INJ 4 MG/ML VIAL ONE (08:18)
[2021-06-15] MEDS ORDERED: ROCURONIUM BROMIDE 10 MG/ML 5 ML VIAL IV ONE ×4 (08:18→10:34)
[2021-06-15] MEDS ORDERED: PROPOFOL IV EMULSION 10 MG/ML 20 ML VIAL IV ONE ×2 (08:18→08:39)
[2021-06-15] MEDS ORDERED: MIDAZOLAM HCL 1 MG/ML 2ML VIAL ONE (08:18)
[2021-06-15] MEDS ORDERED: ONDANSETRON INJ 2 MG/ML 2 ML VIAL ONE (08:18)
[2021-06-15] MEDS ORDERED: LIDOCAINE 2% 2 ML VIAL/AMP(20MG/ML) INFIL ONE (08:18)
[2021-06-15] MEDS ORDERED: fentaNYL citrate 100 MCG/2 ML VIAL ONE (08:19)
[2021-06-15] MEDS ORDERED: KETAMINE 50 MG/5 ML SYRINGE ONE (08:24)
[2021-06-15] MEDS ORDERED: LIDOCAINE 2% 20 MG/ML 5 ML SYR IV ONE (08:39)
[2021-06-15] MEDS ORDERED: REMIFENTANIL HCL 1 MG VIAL ONE (08:39)
--- NOTE | 2021-06-15 08:45 | History & Physical Bridge Note ---
Date of Service June 15, 2021 History & Physical Bridge Note I have examined the patient, reviewed the History & Physical and in the interval since the performance of the History & Physical I have noted the following changes of clinical significance: no changes noted
--- NOTE | 2021-06-15 08:46 | History & Physical Report ---
Date of Service June 15, 2021 Assessment & Plan (1) Neurogenic claudication due to lumbar spinal stenosis: Plan: L2-S1 decompression fusion History of Present Illness Chief Complaint: Back and bilateral leg pain Primary Care Provider: Yelena Nguyễn This is a 65-year-old male who presents with chronic persistent back and bilateral leg pain. Failing since course of nonoperative care is here for surgical invention. Allergies Allergy/AdvReac Type Severity Reaction Status Date / Time No Known Allergies Verified 06/15/21 07:58 Home Medications Medication Instructions Recorded Confirmed Type atorvastatin 20 mg tablet (Lipitor) 20 mg PO QAM 01/08/19 06/15/21 History hydrochlorothiazide 50 mg tablet 50 mg PO QAM 01/08/19 06/15/21 History lisinopril 40 mg tablet 40 mg PO QAM 01/08/19 06/15/21 History omeprazole 20 mg tablet,delayed 20 mg PO QAM 01/08/19 06/15/21 History release pregabalin 75 mg capsule (Lyrica) 75 mg PO QPM 01/08/19 06/15/21 History sennosides 8.6 mg tablet (Senokot) 17.2 mg PO HS PRN #28 tab 02/11/19 06/15/21 Rx aspirin 81 mg tablet,delayed 81 mg PO QAM 12/05/19 06/15/21 History release (Adult Low Dose Aspirin) docusate sodium 100 mg capsule 200 mg PO HS cap 12/05/19 06/15/21 History multivitamin (Daily Multi-Vitamin) 1 tab PO QAM 12/05/19 06/15/21 History albuterol sulfate 90 mcg/actuation 1 inh INHALATION QID PRN #8.5 g 05/22/20 05/27/21 Rx aerosol inhaler meloxicam 15 mg tablet 15 mg PO QAM 05/22/20 06/15/21 History fluticasone 250 mcg-salmeterol 50 1 inh INHALATION BID #60 ea 10/16/20 05/27/21 Rx mcg/dose blistr powdr for inhalation (Advair Diskus) amlodipine 5 mg tablet (Norvasc) 5 mg PO QAM 06/14/21 06/14/21 History Past Med/Surg History Medical History Asthma Possible per pulm - trialing inhalers Recent weight loss - improved breathing issues significantly- does not need inhalers GERD (gastroesophageal reflux disease) Occasional- controlled with Omeprazole Hyperlipidemia Hypertension Obesity Osteoarthritis RBBB Sinus bradycardia Does not have to see cardio No dizziness or near syncope/syncope Surgical History History of carpal tunnel release RT/LEFT History of colonoscopy History of hand surgery TENDON REPAIR RT INDEX FINGER History of tonsillectomy and adenoidectomy History of total knee replacement RT. Revision 02/11/2019: L3-L4 x 1 attempt + PNB. No issues per anesthesia progress note. Hx of hand surgery left > bone spur removed Hx of shoulder surgery RT SHOULDER PARTIAL REPLACEMENT Family History Mother Heart disease Social History Smoking Status: Former smoker Smoking End Date: 40 yrs; Second Hand Exposure: No; Do You Dip or Chew Tobacco: No; Tobacco Cessation Education Requested by Patient: No Hx Alcohol Use: Yes Alcohol type: wine Hx Substance Use: No Preferred Language: [place] Communication Ability: Effective Exterminator Termite Required: No Beliefs That Will Affect Care: None marital status: / Current Living Situation: Alone current occupational status: employed Other Information That Helps Us Care for You: No Feels Safe at Home: Yes Safety Concerns: Feels Safe At This Time Assistive Devices: Walker Physical Exam Physical Exam: Patient is alert and oriented Heart regular rhythm Lungs clear Results & Data ([facility]) Vital Signs (Past 12 Hours) Vital Signs Temp Pulse Resp BP Pulse Ox 06/15/21 08:15 36.8 C 63 20 147/99 H 96
[2021-06-15] MEDS ORDERED: SCOPOLAMINE 1 MG TDSY TD ONE ×2 (08:56→08:57)
[2021-06-15] MEDS ORDERED: ATROPINE SULFATE 0.1 MG/ML 10ML SYR IV PRN (09:01)
[2021-06-15] MEDS ORDERED: PROMETHAZINE HCL 12.5 MG in SODIUM CHLORIDE 0.9% 50 ML IV PRN ×2 (09:01→14:49)
[2021-06-15] MEDS ORDERED: ONDANSETRON INJ 2 MG/ML 2 ML VIAL IV PRN ×2 (09:01→14:49)
[2021-06-15] MEDS ORDERED: LABETALOL HCL IV 5 MG/ML 20ML IV PRN (09:01)
[2021-06-15] MEDS ORDERED: ceFAZolin 330 MG/ML 1 GM VIAL ONE (09:12)
[2021-06-15] MEDS ORDERED: BUPIVACAINE/EPINEPHRINE 0.25% 1:200,000 30 ML VIAL ONE (09:12)
[2021-06-15] MEDS ORDERED: FLOSEAL HEMOSTATIC MATRIX 10ML TOP ONE (10:41)
[2021-06-15] MEDS ORDERED: PHENYLEPHRINE 100MCG/ML 5ML SYR ONE (10:43)
[2021-06-15] MEDS ORDERED: ePHEDrine sulfate 50 MG/ML SYR ONE (10:43)
--- NOTE | 2021-06-15 12:22 | Operative Report ---
Post Operative Report Pre & Post Diagnosis Operation Date: 06/15/21 09:05 Pre-Op Diagnosis: Spinal Stenosis, Lumbar Region with Neurogenic Claudication Post-Op Diagnosis: Spinal Stenosis, Lumbar Region with Neurogenic Claudication I identified the patient and participated in the time-out.: Yes Procedure Operation Date: 06/15/21 09:05 Actual Procedures #1 lumbar decompression with bilateral medial facetectomies foraminotomies L2- L3, L3-L4, L4-5 and L5-S1. #2 posterior spinal fusion L2-S1. #3 placement posterior segmental instrumentation L2-S1. #4 interbody fusion L5-S1. #5 placement of Spira 12 x 26 mm cage L5-S1. #6 placement locally harvested morselized autograft in the posterior gutters. #7 placement is collagen sponge, and master graft in the posterior lateral gutters and I factor in the interbody space. Surgeon Yifan Reece, DO Content Producer Felicia Manuel Estimated Blood Loss 200 Findings See Below Patient is 5 foot 8 inches tall weighing over 96 kg with a BMI in excess of 32. The patient's body habitus did contribute to significant technical difficulty required deepest retractors longus instruments in order to perform his procedure. This had at least 50% increased operative time. Specimens None Indications This is a 65-year-old male who presents with above-mentioned diagnosis after failing course of nonoperative care is here for surgical invention. Description of Procedure Patient was met with identified informed consent obtained. Patient was then taken to the operative suite underwent an patient placed in a prone position the [place] table top Huan frame. All bony prominences well-padded eyes inspected to ensure no external pressure placed upon the. This point the lumbar spine was prepped and draped in a normal sterile fashion. Sharp dissection with the assistance of Bovie cautery was performed down to and exposing the lamina and transverse processes of L to L3-L4-L5 and sacral ala bilaterally. From caudal to cephalad fashion complete laminectomy L5 L4 L3 L2 was performed occluding bilateral medial facetectomies and foraminotomies addressing severe spinal stenosis. Obvious bilateral pars defect at L5. There was an area of significant dural adhesion and thinning and I placed a small DuraGen patch over prophylactically. Pedicle screws were then placed in L2 L4-L5 and S1 levels bilaterally with assistance of fluoroscopy the proper sized santa placed. By way of a transforaminal portion right complete discectomy of L5-S1 was performed endplates curetted to subcortical bleeding bone and a 12 x 26 mm Spira cage filled I factor tapped in position. The rods were then compressed locked in final position bilaterally. The transverse processes of L2-L3 L4-5 and sacral ala burred to subcortical being bone. Infuse collagen sponge mass graft local autograft was placed in the posterior gutters. 15 round NADER drain inserted. The incision was then closed with 1 Vicryl in the fascia 2-0 Vicryl subcutaneously and 4 Monocryl for final skin closure. Steri-Strip sterile dressings placed. Patient will continue to PACU stable condition. Please note spinal cord monitoring was utilized at the procedure no changes noted. Lastly Felicia Manuel was present at the entire surgery and while the patient positioning complex portions of the surgery and final skin closure. I attest to the content of the Intraoperative Record and any orders documented therein. Any exceptions are noted below.
[2021-06-15] MEDS ORDERED: NEOSTIGMINE METHYLSULFATE 1 MG/ML 10ML VIAL ONE (12:30)
[2021-06-15] MEDS ORDERED: GLYCOPYRROLATE 0.2 MG/ML VIAL ONE (12:30)
--- NOTE | 2021-06-15 12:45 | Fluoroscopy Report ---
INTRAOPERATIVE RADIOGRAPHS CLINICAL HISTORY: Lumbar spinal fusion surgery. Fluoroscopy time: 39 seconds. FINDINGS: 3 spot fluoroscopic views of the lumbar spine are presented. There has been discectomy at L 5-S1 with laminectomy and posterior fusion seen from L2-S1. Interpedicular screws are present at all levels with the exception of L3. The orthopedic hardware appears intact. There is minimal anterolisth esis at L5-S1. IMPRESSION: Intraoperative images from lumbar spinal fusion surgery as above. Electronically signed by: Marco Mancera M.D. 06/15/2021 12:43 PM
[2021-06-15] MEDS: HYDROmorphone INJ 1 MG/ML SYRINGE IV PRN ×4 (13:20→21:15)
--- NOTE | 2021-06-15 13:51 | Anesthesiology Progress Note ---
Date of Service June 15, 2021 Anesthesia Post Procedure Vital Signs Vital Signs: Temp Pulse Pulse Resp BP Pulse Ox 06/15/21 13:45 76 20 91/64 L 96 06/15/21 13:35 67 12 92/63 L 97 06/15/21 13:25 36.4 C L 72 17 111/64 94 06/15/21 13:15 74 20 115/68 99 06/15/21 13:05 70 12 110/84 98 06/15/21 12:55 65 13 107/67 98 06/15/21 12:47 36.1 C L 72 20 95/62 L 99 06/15/21 08:15 36.8 C 63 20 147/99 H 96 Pain Intensity Bilateral Shoulder: Pain Intensity: 3 Bilateral Arm: Pain Intensity: 3 Bilateral Hand: Pain Intensity: 5 Lower Back: Pain Intensity: 3 Transfer of Care Handoff Completed per policy Notes Mental Status: alert / awake / arousable Patient Amnestic to Procedure: Yes Nausea / Vomiting: adequately controlled Pain: adequately controlled Airway Patency, RR, SpO2: stable & adequate BP & HR: stable & adequate Hydration State: stable & adequate Anesthetic Complications: no major complications apparent
[2021-06-15] MEDS ORDERED: SENNA 8.6 MG TAB PO PRN (14:49)
[2021-06-15] MEDS ORDERED: DO NOT ADMINISTER PNEUMOCOCCAL VACCINE PRN (14:49)
[2021-06-15] MEDS ORDERED: NALOXONE HCL 0.4 MG/1 ML VIAL/CARP IV PRN (14:49)
[2021-06-15] MEDS ORDERED: hydrOXYzine HCl 25 MG TAB PO PRN (14:49)
[2021-06-15] MEDS ORDERED: ACETAMINOPHEN 500 MG TAB PO PRN (14:49)
[2021-06-15] MEDS ORDERED: METOCLOPRAMIDE HCL INJ 5 MG/ML 2 ML VIAL IV PRN (14:49)
[2021-06-15] MEDS ORDERED: traMADol HCL 50 MG TABLET PO PRN (14:49)
[2021-06-15] MEDS ORDERED: HYDROmorphone INJ 0.5 MG/0.5 ML SYR IV PRN (14:49)
[2021-06-15] MEDS ORDERED: FAMOTIDINE 20 MG TAB PO PRN (14:49)
[2021-06-15] MEDS ORDERED: bisacodyL 10 MG SUPP PR PRN (14:49)
[2021-06-15] MEDS ORDERED: LORazepam 2 MG/1 ML VIAL IV PRN (14:49)
[2021-06-15] MEDS ORDERED: DO NOT ADMINISTER FLU VACCINE PRN (14:49)
[2021-06-15] MEDS ORDERED: diphenhydrAMINE Capsule 25 MG CAP PO PRN (14:49)
[2021-06-15] MEDS ORDERED: ACETAMINOPHEN 1,000 MG/100 ML VIAL IV PRN (14:49)
[2021-06-15] MEDS ORDERED: ONDANSETRON 4 MG OD TAB PO PRN (14:49)
[2021-06-15] MEDS ORDERED: SOD PHOSPHATE/SOD BIPHOSPHATE ENEMA 132 ML BTL PR PRN (14:49)
[2021-06-15] MEDS ORDERED: MAGNESIUM HYDROXIDE SUSP 30 ML UDC PO PRN (14:49)
[2021-06-15] MEDS ORDERED: ALUMINUM/MAGNESIUM SUSP 30 ML UDC PO PRN (14:49)
[2021-06-15] MEDS ORDERED: LORazepam 0.5 MG TAB PO PRN (14:49)
--- NOTE | 2021-06-15 15:15 | Consultation ---
Date of Consultation June 15, 2021 Assessment & Plan (1) Neurogenic claudication due to lumbar spinal stenosis: (2) Hypertension: (3) Hyperlipidemia: (4) Osteoarthritis: (5) Chronic steroid use: This is a 65-year-old male who has significant past medical history of HTN, HLD, GERD, asthma who presents for elective lumbar procedure by Dr. Reece. Neurogenic claudication due to lumbar spinal stenosis Actual Procedures #1 lumbar decompression with bilateral medial facetectomies foraminotomies L2- L3, L3-L4, L4-5 and L5-S1. #2 posterior spinal fusion L2-S1. #3 placement posterior segmental instrumentation L2-S1. #4 interbody fusion L5-S1. #5 placement of Spira 12 x 26 mm cage L5-S1. #6 placement locally harvested morselized autograft in the posterior gutters. #7 placement is collagen sponge, and master graft in the posterior lateral gutters and I factor in the interbody space. POD #[address] Reece EBL 200 mL Pain/wound management per orthopedics Activity and therapy as per orthopedics Encourage incentive spirometry and wean oxygen as able Monitor hemoglobin, preop 15.2 HTN Blood pressure on lower side Hold amlodipine, lisinopril, and HCTZ Resume when able HLD Continue statin Osteoarthritis Chronic systemic steroid use Patient states he takes prednisone 20 mg daily, last dose last evening He is ordered daily Decadron; therefore will hold Resume at discharge, monitor for adrenal insufficiency DVT ppx: Per ortho PCP: SUHAS Arboleda FULL CODE Pt was seen and examined in collaboration with Dr. Rhoades, please see addendum Thank you for this consultation. We will follow the patient with you during their hospital stay. You can reach a member of the [facility] Hospitalist Team 26/09 via hospitalist role on tiger text. Supervising Physician Co-Signing Physician Notes Pt is a 65 y/o M with hx of HTN, HLD, OA on chronic steroid, L DDD with radic ulopathy admitted for chronic back pain and underwent Lumbar decompression with spinal fusion L2-S1 on 06/15/21 PE: NAD, well developed Lungs: CTA, no wheezing or crackles Cards: Normal S1/S2, no murmur Abd: ND, soft, NT Psych: AAOx3, normal affect A/P: L DDD with radiculopathy - Lumbar decompression with spinal fusion L2-S1 on 06/15/21 - pt is recovering well -VSS -pain management per ortho -PT/OT -monitor CBC HTN: -BP is at low normal therefore will hold home HTN meds for now HLD: -on statin OA on chronic prednisone (20mg daily): -since pt is going to get IV decadron will hold prednisone and restart on discharged Agree with A/P by Griselda Negro PA-C History of Present Illness Requesting Physician: Post op medical management Reason for Consultation: Post op medical management Attending Physician: Yifan Reece DO History of Present Illness This is a 65-year-old male who has significant past medical history of HTN, HLD, GERD, asthma who presents for elective lumbar procedure by Dr. Reece. He tolerated the procedure well. Postoperatively he complains of back and right knee pain. This pain is similar prior to surgery. He denies any fever, chills, sweats, lightheadedness, dizziness, chest pain, shortness with, cough, nausea, vomiting, abdominal pain. Previous episodes with anesthesia resulted in nausea, currently he has not had experiences. He is tolerating ice water and chips. Of significance patient does have history of high blood pressure currently controlled on amlodipine, lisinopril and hydrochlorothiazide. He also has history of chronic osteoarthritis. His medication list was reviewed and was without his daily prednisone dose. He states he takes 20 mg of prednisone every night. Allergies Allergy/AdvReac Type Severity Reaction Status Date / Time No Known Allergies Verified 06/15/21 07:58 Home Medications Medication Instructions Recorded Confirmed Type atorvastatin 20 mg tablet (Lipitor) 20 mg PO QAM 01/08/19 06/15/21 History hydrochlorothiazide 50 mg tablet 50 mg PO QAM 01/08/19 06/15/21 History lisinopril 40 mg tablet 40 mg PO QAM 01/08/19 06/15/21 History omeprazole 20 mg tablet,delayed 20 mg PO QAM 01/08/19 06/15/21 History release pregabalin 75 mg capsule (Lyrica) 75 mg PO QPM 01/08/19 06/15/21 History sennosides 8.6 mg tablet (Senokot) 17.2 mg PO HS PRN #28 tab 02/11/19 06/15/21 Rx aspirin 81 mg tablet,delayed 81 mg PO QAM 12/05/19 06/15/21 History release (Adult Low Dose Aspirin) docusate sodium 100 mg capsule 200 mg PO HS cap 12/05/19 06/15/21 History multivitamin (Daily Multi-Vitamin) 1 tab PO QAM 12/05/19 06/15/21 History albuterol sulfate 90 mcg/actuation 1 inh INHALATION QID PRN #8.5 g 05/22/20 05/27/21 Rx aerosol inhaler meloxicam 15 mg tablet 15 mg PO QAM 05/22/20 06/15/21 History fluticasone 250 mcg-salmeterol 50 1 inh INHALATION BID #60 ea 10/16/20 05/27/21 Rx mcg/dose blistr powdr for inhalation (Advair Diskus) amlodipine 5 mg tablet (Norvasc) 5 mg PO QAM 06/14/21 06/14/21 History prednisone 20 mg tablet 20 mg PO HS 06/15/21 06/15/21 History Patient History Medical History (Updated 06/15/21 @ 15:48 by Griselda Negro PA-C) Asthma Possible per pulm - trialing inhalers Recent weight loss - improved breathing issues significantly- does not need inhalers GERD (gastroesophageal reflux disease) Occasional- controlled with Omeprazole Hyperlipidemia Hypertension Obesity Osteoarthritis RBBB Sinus bradycardia Does not have to see cardio No dizziness or near syncope/syncope Surgical History History of carpal tunnel release RT/LEFT History of colonoscopy History of hand surgery TENDON REPAIR RT INDEX FINGER History of tonsillectomy and adenoidectomy History of total knee replacement RT. Revision 02/11/2019: L3-L4 x 1 attempt + PNB. No issues per anesthesia progress note. Hx of hand surgery left > bone spur removed Hx of shoulder surgery RT SHOULDER PARTIAL REPLACEMENT Family History Mother Heart disease Social History Smoking Status: Former smoker Smoking End Date: 40 yrs; Second Hand Exposure: No; Do You Dip or Chew Tobacco: No; Tobacco Cessation Education Requested by Patient: No Hx Alcohol Use: Yes Alcohol type: wine Hx Substance Use: No Preferred Language: Croatian Communication Ability: Effective Chief Of Staff Doctor Required: No Beliefs That Will Affect Care: None marital status: / Current Living Situation: Alone current occupational status: employed Other Information That Helps Us Care for You: No Feels Safe at Home: Yes Safety Concerns: Feels Safe At This Time Assistive Devices: Cane, Glasses and Walker Review of Systems Review of Systems: All systems reviewed & are unremarkable except as noted in HPI & below Physical Exam Physical Exam: Constitutional: WD/WN, vitals as above, NAD, sitting up in bed, pleasant, conversing easily Head: Normocephalic, Atraumatic Eyes: PERRL, conjunctivae normal, anicteric sclerae ENMT: external ear and nose normal, oropharynx normal Neck: trachea midline, no thyromegaly normal visual inspection Respiratory: normal respiratory effort, lungs clear to auscultation, no wheeze, rales, rhonchi. Normal insp/exp effort, no accessory muscle use Cardiovascular: RRR, no murmur, no edema Vessels: no JVD or carotid bruit Chest: normal inspection of chest Abdomen: normal bowel sounds, soft, nontender, no hepatosplenomegaly Musculoskeletal: no cyanosis or clubbing, active range of motion x4, lumbar dressing CDI with NADER drain with serosanguineous drainage Skin: no rashes, warm and dry normal turgor Neurologic: PERRL, EOMI, accommodation nl, no face palsy, no dysarthria CN's II-XI intact bilaterally and moves all extremities Psychiatric: A+Ox3, euthymic affect Lymphatic: no cervical or axillary lymphadenopathy : Adair catheter with yellow urine Results & Data ([facility]) Vital Signs (Past 12 Hours) Vital Signs Temp Pulse Pulse Resp BP Pulse Ox 06/15/21 14:38 36.2 C L 64 18 98/64 L 95 06/15/21 14:37 36.2 C L 64 18 98/64 L 95 06/15/21 14:15 63 19 96/66 L 94 06/15/21 14:05 36.5 C 65 20 98/62 L 95 06/15/21 13:45 76 20 91/64 L 96 06/15/21 13:35 67 12 92/63 L 97 06/15/21 13:25 36.4 C L 72 17 111/64 94 06/15/21 13:15 74 20 115/68 99 06/15/21 13:05 70 12 110/84 98 06/15/21 12:55 65 13 107/67 98 06/15/21 12:47 36.1 C L 72 20 95/62 L 99 06/15/21 08:15 36.8 C 63 20 147/99 H 96 Diagnostic Findings Lumbar Spine X-Ray 06/15/21 09:05 INTRAOPERATIVE RADIOGRAPHS CLINICAL HISTORY: Lumbar spinal fusion surgery. Fluoroscopy time: 39 seconds. FINDINGS: 3 spot fluoroscopic views of the lumbar spine are presented. There has been discectomy at L5-S1 with laminectomy and posterior fusion seen from L2-S1. Interpedicular screws are present at all levels with the exception of L3. The orthopedic hardware appears intact. There is minimal anterolisthesis at L5-S1. IMPRESSION: Intraoperative images from lumbar spinal fusion surgery as above. Electronically signed by: Marco Mancera M.D. 06/15/2021 12:43 PM CXR 06/01/21: XR chest Pre-admission PA/Lat CLINICAL HISTORY: Sleep apnea TECHNIQUE: AP and lateral radiographs of the chest was obtained. Comparison: Comparison is made to chest 2 views 01/16/2019 FINDINGS: Right shoulder arthroplasty is seen. The cardiomediastinal silhouette is normal. Bibasilar atelectasis is noted. No evidence of pleural effusion or pneumothorax. IMPRESSION: Atelectasis without evidence of acute abnormality. Medications Administered Current Inpatient Medications Acetaminophen (Acetaminophen 500 Mg Tab) 1,000 mg PO PREOP MARLY Stop: 06/15/21 18:00 Last Admin: 06/15/21 08:09 Dose: 1,000 mg Documented by: Acetaminophen (Acetaminophen 500 Mg Tab) 1,000 mg PO Q8H PRN PRN Reason: MILD Pain Scale 1,2,3 & Pre PT Stop: 07/15/21 14:48 Al Hydrox/Mg Hydrox/Simethicone (Aluminum/Magnesium Susp 30 Ml Udc) 30 ml PO Q6H PRN PRN Reason: Dyspepsia Stop: 07/15/21 14:48 Amlodipine Besylate (Amlodipine Besylate 5 Mg Tab) 5 mg PO QAM MARLY Stop: 07/16/21 08:59 Aspirin ([facility]in 81 Mg Ectab) [facility]: 07/16/21 08:59 Atorvastatin Calcium (Atorvastatin 20 Mg Tab) [facility] Stop: 07/16/21 08:59 Atropine Sulfate (Atropine Sulfate 0.1 Mg/Ml 10ml Syr) 0.5 mg IV Q1M PRN PRN Reason: PACU Use-HR<40 &/or Bradycardi Stop: 06/15/21 17:01 Bisacodyl (Bisacodyl 10 Mg Supp) 10 mg ID DAILY PRN PRN Reason: Constipation Stop: 07/15/21 14:48 Celecoxib (Celebrex 200 Mg Cap) 200 mg PO PREOP MARLY Stop: 06/15/21 18:00 Last Admin: 06/15/21 08:10 Dose: 200 mg Documented by: Diphenhydramine HCl (Diphenhydramine Capsule 25 Mg Cap) 25 mg PO Q6H PRN PRN Reason: Allergic Rhinitis/Insomnia Stop: 07/15/21 14:48 Famotidine (Famotidine 20 Mg Tab) 20 mg PO Q12H PRN PRN Reason: Dyspepsia Stop: 07/15/21 14:48 Gabapentin (Gabapentin 300 Mg Cap) 300 mg PO PREOP MARLY Stop: 06/15/21 18:00 Last Admin: 06/15/21 08:10 Dose: 300 mg Documented by: Hydrochlorothiazide (Hydrochlorothiazide 25 Mg Tab) 50 mg PO [facility] Stop: 07/16/21 08:59 Hydromorphone HCl (Hydromorphone Inj 1 Mg/Ml Syringe) 0.25 mg IV Q5M PRN PRN Reason: PACU Use Only-Pain Stop: 06/15/21 17:01 Last Admin: 06/15/21 13:25 Dose: 0.25 mg Documented by: Hydromorphone HCl (Hydromorphone Inj 0.5 Mg/0.5 Ml Syr) 0.5 mg IV Q3H PRN PRN Reason: MODERATE Pain (Scale 4,5,6) & Pre PT Stop: 06/29/21 14:48 Hydromorphone HCl (Hydromorphone Inj 1 Mg/Ml Syringe) 1 mg IV Q3H PRN PRN Reason: SEVERE Pain (Scale 7,8,9,10) Stop: 06/29/21 14:48 Hydroxyzine HCl (Hydroxyzine Hcl 25 Mg Tab) 25 mg PO Q8H PRN PRN Reason: Anxiety Stop: 07/15/21 14:48 Lactated Ringer's (Lr) 1,000 mls @ 15 mls/hr IV .Q24H MARLY Stop: 06/16/21 05:59 Last Infusion: 06/15/21 09:19 Dose: Infused Documented by: Cefazolin Sodium (Ancef 2000mg) 2,000 mg in 15 mls @ 3.75 mls/min IV PREOP MARLY; Protocol Stop: 06/15/21 18:00 Last Admin: 06/15/21 09:19 Dose: 3.75 mls/min Documented by: Promethazine HCl 12.5 mg/ (Sodium Chloride) 50.5 mls @ 204 mls/hr IV ONCE PRN PRN Reason: PACU Use Only-Nausea/Vomiting Stop: 06/15/21 17:01 Acetaminophen (Ofirmev) 1,000 mg in 100 mls @ 400 mls/hr IV Q8H PRN PRN Reason: Pain Rating 1-3 & Pre PT Stop: 06/18/21 14:48 Cefazolin Sodium (Ancef 2000mg) 2,000 mg in 15 mls @ 3.75 mls/min IV Q8H MARLY; Protocol Stop: 06/16/21 02:33 Sodium Chloride (Nss 1000ml) 1,000 mls @ 100 mls/hr IV .Q10H MARLY Stop: 07/15/21 14:48 Promethazine HCl 12.5 mg/ (Sodium Chloride) 50.5 mls @ 202 mls/hr IV Q6H PRN PRN Reason: Nausea &/or Vomiting Stop: 07/15/21 14:48 Dexamethasone 6 mg/ Syringe 1.5 mls @ 1 mls/min IV DAILY MARLY Stop: 06/18/21 09:02 Influenza Virus Vaccine Quadrival (Do Not Administer Flu Vaccine) 1 ea N/A PRN PRN PRN Reason: Notification Stop: 07/15/21 14:48 Labetalol HCl (Labetalol Hcl Iv 5 Mg/Ml 20ml) 5 mg IV Q5M PRN PRN Reason: PACU Use-SBP>160 or DBP>100 Stop: 06/15/21 17:01 Lisinopril (Lisinopril 40 Mg Tab) 40 mg PO [facility] Stop: 07/16/21 08:59 Lorazepam (Lorazepam 0.5 Mg Tab) 0.5 mg PO Q8H PRN PRN Reason: Sedation/Anxiety Stop: 07/15/21 14:48 Lorazepam (Lorazepam 2 Mg/1 Ml Vial) 0.5 mg IV Q8H PRN PRN Reason: Sedation/Anxiety Stop: 07/15/21 14:48 Magnesium Hydroxide (Magnesium Hydroxide Susp 30 Ml Udc) 30 ml PO Q24H PRN PRN Reason: Constipation Stop: 07/15/21 14:48 Meloxicam (Meloxicam 7.5 Mg Tab) 15 mg PO [facility] Stop: 07/16/21 08:59 Metoclopramide HCl (Metoclopramide Hcl Inj 5 Mg/Ml 2 Ml Vial) 10 mg IV Q6H PRN PRN Reason: Nausea &/or Vomiting Stop: 07/15/21 14:48 Miscellaneous (Check Scopolamine Patch Placement) 1 ea N/A QS [facility] Stop: 06/18/21 05:59 Miscellaneous (Remove Transderm-Scop Patch) 1 ea N/A ONE ONE Stop: 06/18/21 06:01 Multivitamins (Multivitamin Tab) 1 tab PO [facility] Stop: 07/16/21 08:59 Naloxone HCl (Naloxone Hcl 0.4 Mg/1 Ml Vial/Carp) 0.1 mg IV Q5M PRN PRN Reason: Oversedation/Resp depression Stop: 07/15/21 14:48 Ondansetron HCl (Ondansetron Inj 2 Mg/Ml 2 Ml Vial) 4 mg IV ONCE PRN PRN Reason: PACU Use Only-Nausea/Vomiting Stop: 06/15/21 17:01 Ondansetron HCl (Ondansetron Inj 2 Mg/Ml 2 Ml Vial) 4 mg IV Q6H PRN PRN Reason: Nausea &/or Vomiting Stop: 07/15/21 14:48 Ondansetron HCl (Ondansetron 4 Mg Od Tab) 4 mg PO Q6H PRN PRN Reason: Nausea Stop: 07/15/21 14:48 Oxycodone HCl (Oxycodone Hcl Ir 5 Mg Tab (Immediate Release)) 5 - 10 mg PO Q4H PRN PRN Reason: Pain & Pre PT Stop: 06/29/21 14:48 Pantoprazole Sodium (Pantoprazole 40 Mg Tab) 40 mg PO QAM MARLY; Protocol Stop: 07/16/21 08:59 Pneumococcal Polyvalent Vaccine (Do Not Administer Pneumococcal Vaccine) 1 ea N/A PRN PRN PRN Reason: Notification Stop: 07/15/21 14:48 Polyethylene Glycol (Polyethylene (Miralax) 17 Gm Pack) 17 gm PO Q6 [facility]LY Stop: 07/16/21 05:59 Pregabalin (Pregabalin 75 Mg Cap) 75 mg PO QPM [facility] Stop: 07/15/21 20:59 Senna/Docusate Sodium (Docusate Sodium/Senna 50/8.6mg Tab) 2 tab PO HS [facility] Stop: 07/15/21 20:59 Sennosides (Senna 8.6 Mg Tab) 17.2 mg PO HS PRN PRN Reason: constipation Stop: 07/15/21 14:48 Sodium Biphosphate/Sodium Phosphate (Sod Phosphate/Sod Biphosphate Enema 132 Ml Btl) 132 ml ID ONE PRN PRN Reason: Constipation Stop: 07/15/21 14:48 Tramadol HCl (Tramadol Hcl 50 Mg Tablet) 50 - 100 mg PO Q4H PRN PRN Reason: Moderate-Severe pain & Pre PT Stop: 07/15/21 14:48 ECG Rate (beats per minute): 63 Rhythm: normal sinus Findings: + PAC Additional Comments: qtc 427ms
[2021-06-15] MEDS: SODIUM CHLORIDE 0.9% 1000ML 1,000 ML IV SCH (16:02)
[2021-06-15] MEDS: CHECK SCOPOLAMINE PATCH PLACEMENT SCH (16:03)
[2021-06-15] MEDS: ceFAZolin 2000MG 2,000 MG/15 ML SYR IV SCH (18:21)
[2021-06-15] MEDS: PREGABALIN 75 MG CAP PO SCH (21:15)
[2021-06-15] MEDS: DOCUSATE SODIUM/SENNA 50/8.6MG TAB PO SCH (21:16)
[2021-06-16] MEDS: CHECK SCOPOLAMINE PATCH PLACEMENT SCH ×3 (00:33→16:23)
[2021-06-16] MEDS: ceFAZolin 2000MG 2,000 MG/15 ML SYR IV SCH (02:08)
[2021-06-16] MEDS: SODIUM CHLORIDE 0.9% 1000ML 1,000 ML IV SCH (02:08)
[2021-06-16] MEDS: POLYETHYLENE (MIRALAX) 17 GM PACK PO SCH ×3 (05:43→17:32)
[2021-06-16] MEDS: oxyCODONE HCL IR 5 MG TAB (IMMEDIATE RELEASE) PO PRN ×2 (05:59→22:41)
[2021-06-16 07:15] LABS: BUN Creatinine Ratio 23.6 (10-20); Calcium 8.3 mg/dl (8.5-10.1); Creatinine Clr Calc Pharmacy 78.3 ml/min; Est GFR (African American) 84.9 ml/min; Est GFR (Non-African American) 73.3 ml/min; Potassium 3.7 mmol/L (3.5-5.1)
[2021-06-16 07:16] LABS: Basophils # (auto) 0.01 K/uL (0-0.2); Basophils % (auto) 0.1 %; Eosinophils # (auto) 0.02 K/uL (0-0.5); Eosinophils % (auto) 0.2 %; Hematocrit (blood only) 39.2 % (42-52); Hemoglobin 12.9 g/dL (14.0-18.0); Immature Granulocytes # (auto) 0.03 K/uL (0.00-0.02); Immature Granulocytes % (auto) 0.2 %; Lymphocytes # (auto) 1.59 K/uL (1.2-3.4); Mean Corpuscular Hemoglobin 31.5 pg (25-34); Mean Corpuscular Hgb Conc 32.9 g/dL (32-36); Mean Corpuscular Volume 95.6 fL (80-100); Mean Platelet Volume 10.2 fL (7.4-10.4); Monocytes # (auto) 0.94 K/uL (0.11-0.59); Monocytes % (auto) 7.1 %; Neutrophils # (auto) 10.61 K/uL (1.4-6.5); Neutrophils % (auto) 80.4 %; Platelet Count 286 K/uL (130-400); RDW Coefficient of Variation 12.9 % (11.5-14.5); RDW Standard Deviation 44.7 fL (36.4-46.3)
[2021-06-16] MEDS: ASPIRIN 81 MG ECTAB PO SCH (08:06)
[2021-06-16] MEDS: dexAMETHasone 6 MG in SYRINGE 0 ML IV SCH (08:06)
[2021-06-16] MEDS: amLODIPine BESYLATE 5 MG TAB PO SCH (08:06)
[2021-06-16] MEDS: lisinopril 40 MG TAB PO SCH (08:07)
[2021-06-16] MEDS: ATORVASTATIN 20 MG TAB PO SCH (08:07)
[2021-06-16] MEDS: PANTOprazole 40 MG TAB PO SCH (08:08)
[2021-06-16] MEDS: MELOXICAM 7.5 MG TAB PO SCH (08:08)
[2021-06-16] MEDS: MULTIVITAMIN TAB PO SCH (08:08)
[2021-06-16] MEDS ORDERED: hydroCHLOROthiazide 25 MG TAB PO SCH (09:00)
--- NOTE | 2021-06-16 10:59 | Orthopedic Progress Note ---
Date of Service June 16, 2021 Assessment & Plan (1) Neurogenic claudication due to lumbar spinal stenosis: Plan: At this time I am going to initiate bed to chair only. If he tolerates this well throughout the day and NADER drain continues to decrease and may consider physical therapy tomorrow. We will most likely obtain MRI of the cervical spine during his hospital stay secondary to his arm numbness. Admission and Anticipated Discharge Date Admission Date: June 15, 2021 Subjective Patient states his back pain is controlled. Denies any leg pain. He has some numbness in the bilateral arms extending to the fingers. This has been present preoperatively. Physical Exam Physical Exam: Patient is stable to bed. Appears comfortable. Strength testing. Results & Data ([facility]) Vital Signs (Past 12 Hours) Vital Signs Temp Pulse Resp BP Pulse Ox 06/16/21 10:56 37 C 71 18 134/83 95 06/16/21 07:27 37 C 75 18 126/83 99 06/16/21 02:36 36.4 C L 70 16 125/82 98
--- NOTE | 2021-06-16 13:07 | Hospitalist Progress Note ---
Date of Service June 16, 2021 Assessment & Plan (1) Neurogenic claudication due to lumbar spinal stenosis: (2) Hypertension: (3) Hyperlipidemia: (4) Osteoarthritis: (5) Chronic steroid use: Plan: per previous hospitalist note TYRONE Bond'mercedes notes with addendum: This is a 65-year-old male who has significant past medical history of HTN, HLD, GERD, asthma who presents for elective lumbar procedure by Dr. Reece. Neurogenic claudication due to lumbar spinal stenosis Actual Procedures #1 lumbar decompression with bilateral medial facetectomies foraminotomies L2- L3, L3-L4, L4-5 and L5-S1. #2 posterior spinal fusion L2-S1. #3 placement posterior segmental instrumentation L2-S1. #4 interbody fusion L5-S1. #5 placement of Spira 12 x 26 mm cage L5-S1. #6 placement locally harvested morselized autograft in the posterior gutters. #7 placement is collagen sponge, and master graft in the posterior lateral gutters and I factor in the interbody space. POD #[address] Reece EBL 200 mL Pain/wound management per orthopedics Activity and therapy as per orthopedics Encourage incentive spirometry and wean oxygen as able Monitor hemoglobin, preop 15.2 4/13 Hg 12.9 monitor Hg HTN BP within acceptable range Hold amlodipine, lisinopril, and HCTZ monitor BP HLD Continue statin Osteoarthritis Chronic systemic steroid use Patient states he takes prednisone 20 mg daily, last dose last evening He is ordered daily Decadron; therefore will hold Resume at discharge, monitor for adrenal insufficiency DVT ppx: Per ortho PCP: SUHAS Arboleda FULL CODE Pt was seen and examined in collaboration with Dr. Rhoades, please see addendum Thank you for this consultation. We will follow the patient with you during their hospital stay. You can reach a member of the [facility] Hospitalist Team 26/09 via hospitalist role on tiger text. Admission and Anticipated Discharge Date Admission Date: June 15, 2021 Subjective ff up for s/p back surgery, etc seen resting in bed, comfortable states he feels fine overall mild discomfort on the lower back no chest pain, dyspnea, palpitations, dizziness no other symptoms Review of Systems Review of Systems: all noted and negative except for above Physical Exam Physical Exam: General- oriented x 3, not in distress, speaks in sentences with no effort or accessory muscle use Eyes- anicteric Neck- no JVD Lungs- clear breath sounds bilaterally, no rales/wheezes Heart- normal rate, regular rhythm; no murmurs Abdomen- normal bowel sounds, nondistended, soft, nontender Extremities- no pretibial edema, no calf tenderness Back - NADER drain in place with moderate sanguinous output Neuro- alert, oriented x 3; no gross focal neurologic deficits Skin- warm & dry Results & Data Results & Data ([facility]) Vital Signs (Past 12 Hours) Vital Signs Temp Pulse Resp BP Pulse Ox 06/16/21 10:56 37 C 71 18 134/83 95 06/16/21 07:27 37 C 75 18 126/83 99 06/16/21 02:36 36.4 C L 70 16 125/82 98 all noted and reviewed including below
[2021-06-16] MEDS: PREGABALIN 75 MG CAP PO SCH (22:41)
[2021-06-16] MEDS: DOCUSATE SODIUM/SENNA 50/8.6MG TAB PO SCH (22:42)
[2021-06-17] MEDS: CHECK SCOPOLAMINE PATCH PLACEMENT SCH ×3 (00:41→17:49)
[2021-06-17] MEDS: POLYETHYLENE (MIRALAX) 17 GM PACK PO SCH ×4 (00:41→18:04)
[2021-06-17] MEDS: ATORVASTATIN 20 MG TAB PO SCH (08:03)
[2021-06-17] MEDS: PANTOprazole 40 MG TAB PO SCH (08:03)
[2021-06-17] MEDS: dexAMETHasone 6 MG in SYRINGE 0 ML IV SCH (08:03)
[2021-06-17] MEDS: ASPIRIN 81 MG ECTAB PO SCH (08:03)
[2021-06-17] MEDS: MULTIVITAMIN TAB PO SCH (08:03)
[2021-06-17] MEDS: MELOXICAM 7.5 MG TAB PO SCH (08:04)
[2021-06-17] MEDS: oxyCODONE HCL IR 5 MG TAB (IMMEDIATE RELEASE) PO PRN (09:10)
--- NOTE | 2021-06-17 09:44 | Orthopedic Progress Note ---
Date of Service June 17, 2021 Assessment & Plan (1) Neurogenic claudication due to lumbar spinal stenosis: Plan: At this time and I will maintain bedrest today he may have bathroom privileges. May sit up to eat. I did discontinue his drain today. Pending how he p rogresses we may need to do some physical therapy tomorrow. I plan for an MRI of the cervical spine on Monday. Admission and Anticipated Discharge Date Admission Date: June 15, 2021 Subjective Patient struggling with significant cervicalgia and bilateral arm numbness. Franklin k pain is controlled. Did have an episode of nausea. Denies any headache at this time. Tolerated sitting in chair reasonably well yesterday. Leg pain is improved. Physical Exam Physical Exam: On exam strength is intact. Appears comfortable. Results & Data ([facility]) Vital Signs (Past 12 Hours) Vital Signs Temp Pulse Pulse Resp BP BP Pulse Ox 06/17/21 07:16 36.7 C 63 18 136/83 96 06/16/21 21:45 37.0 C 61 16 120/80 94
[2021-06-17 09:59] LABS: Basophils # (auto) 0.02 K/uL (0-0.2); Basophils % (auto) 0.2 %; Eosinophils # (auto) 0.11 K/uL (0-0.5); Eosinophils % (auto) 0.9 %; Hematocrit (blood only) 40.3 % (42-52); Hemoglobin 13.2 g/dL (14.0-18.0); Immature Granulocytes # (auto) 0.05 K/uL (0.00-0.02); Immature Granulocytes % (auto) 0.4 %; Lymphocytes # (auto) 1.73 K/uL (1.2-3.4); Mean Corpuscular Hemoglobin 31.1 pg (25-34); Mean Corpuscular Hgb Conc 32.8 g/dL (32-36); Mean Corpuscular Volume 94.8 fL (80-100); Mean Platelet Volume 10.2 fL (7.4-10.4); Monocytes # (auto) 0.86 K/uL (0.11-0.59); Neutrophils # (auto) 9.58 K/uL (1.4-6.5); Neutrophils % (auto) 77.5 %; Platelet Count 254 K/uL (130-400); RDW Coefficient of Variation 12.9 % (11.5-14.5); Red Blood Count 4.25 M/uL (4.7-6.1); White Blood Count 12.35 K/uL (4.8-10.8)
[2021-06-17] MEDS: amLODIPine BESYLATE 5 MG TAB PO SCH (12:43)
--- NOTE | 2021-06-17 13:15 | Hospitalist Progress Note ---
Date of Service June 17, 2021 Assessment & Plan (1) Neurogenic claudication due to lumbar spinal stenosis: (2) Hypertension: (3) Hyperlipidemia: (4) Osteoarthritis: (5) Chronic steroid use: Plan: per previous hospitalist note TYRONE Bond'mercedes notes with addendum: This is a 65-year-old male who has significant past medical history of HTN, HLD, GERD, asthma who presents for elective lumbar procedure by Dr. Reece. Neurogenic claudication due to lumbar spinal stenosis Actual Procedures #1 lumbar decompression with bilateral medial facetectomies foraminotomies L2- L3, L3-L4, L4-5 and L5-S1. #2 posterior spinal fusion L2-S1. #3 placement posterior segmental instrumentation L2-S1. #4 interbody fusion L5-S1. #5 placement of Spira 12 x 26 mm cage L5-S1. #6 placement locally harvested morselized autograft in the posterior gutters. #7 placement is collagen sponge, and master graft in the posterior lateral gutters and I factor in the interbody space. POD #[address] Reece EBL 200 mL Pain/wound management per orthopedics Activity and therapy as per orthopedics Encourage incentive spirometry and wean oxygen as able Monitor hemoglobin, preop 15.2 4/14 Hg 13 stable DVT prophylaxis per Ortho SVC HTN BP increasing resume usual amlodipine Hold lisinopril, and HCTZ monitor BP HLD Continue statin Osteoarthritis Chronic systemic steroid use Patient states he takes prednisone 20 mg daily, last dose last evening He is ordered daily Decadron; therefore will hold Resume at discharge, monitor for adrenal insufficiency DVT ppx: Per ortho PCP: SUHAS Arboleda FULL CODE Pt was seen and examined in collaboration with Dr. Rhoades, please see addendum Thank you for this consultation. We will follow the patient with you during their hospital stay. You can reach a member of the [facility] Hospitalist Team 26/09 via hospitalist role on tiger text. Admission and Anticipated Discharge Date Admission Date: June 15, 2021 Subjective ff up for s/p back surgery, etc seen resting in bed, comfortable was having posterior neck pain earlier, improved after lumbar drain removed no chest pain, dyspnea, palpitations, dizziness ambulating to the BR with no problems no other symptoms Review of Systems Review of Systems: all noted and negative except for above Physical Exam Physical Exam: General- oriented x 3, not in distress, speaks in sentences with no effort or accessory muscle use Eyes- anicteric Neck- no JVD Lungs- clear breath sounds bilaterally, no rales/wheezes Heart- normal rate, regular rhythm; no murmurs Abdomen- normal bowel sounds, nondistended, soft, nontender Extremities- no pretibial edema, no calf tenderness Neuro- alert, oriented x 3; no gross focal neurologic deficits Skin- warm & dry Results & Data Results & Data ([facility]) Vital Signs (Past 12 Hours) Vital Signs Temp Pulse Resp BP Pulse Ox 06/17/21 07:16 36.7 C 63 18 136/83 96 all noted and reviewed including below
[2021-06-17] MEDS: PREGABALIN 75 MG CAP PO SCH (21:12)
[2021-06-17] MEDS: DOCUSATE SODIUM/SENNA 50/8.6MG TAB PO SCH (23:02)
[2021-06-18] MEDS: CHECK SCOPOLAMINE PATCH PLACEMENT SCH (00:45)
[2021-06-18] MEDS: POLYETHYLENE (MIRALAX) 17 GM PACK PO SCH ×5 (00:45→23:56)
[2021-06-18] MEDS: amLODIPine BESYLATE 5 MG TAB PO SCH (07:47)
[2021-06-18] MEDS: dexAMETHasone 6 MG in SYRINGE 0 ML IV SCH (07:48)
--- NOTE | 2021-06-18 09:11 | Orthopedic Progress Note ---
Date of Service June 18, 2021 Assessment & Plan (1) Neurogenic claudication due to lumbar spinal stenosis: Plan: At this time we will continue with physical therapy ambulate the halls and possibly steps. Elect obtain an MRI of the cervical spine in light of his jesus ateral upper extremity numbness tingling and weakness. Admission and Anticipated Discharge Date Admission Date: June 15, 2021 Subjective Patient's back pain is controlled leg symptoms markedly improved Physical Exam Physical Exam: Patient is ambulating about his room. He is comfortable. Is good strength testing. Results & Data ([facility]) Vital Signs (Past 12 Hours) Vital Signs Temp Pulse Pulse Resp BP Pulse Ox 06/18/21 07:24 37 C 66 18 150/96 H 95 06/17/21 22:12 37.1 C 74 16 133/85 95
[2021-06-18] MEDS: ASPIRIN 81 MG ECTAB PO SCH (09:26)
[2021-06-18] MEDS: MELOXICAM 7.5 MG TAB PO SCH (09:26)
[2021-06-18] MEDS: ATORVASTATIN 20 MG TAB PO SCH (09:26)
[2021-06-18] MEDS: PANTOprazole 40 MG TAB PO SCH (09:26)
[2021-06-18] MEDS: MULTIVITAMIN TAB PO SCH (09:27)
[2021-06-18] MEDS: lisinopril 40 MG TAB PO SCH (11:16)
--- NOTE | 2021-06-18 12:53 | XRay Report ---
BONY ORBITS 3 VIEWS CLINICAL HISTORY: MRI clearance. FINDINGS: 3 views of the bony orbits are obtained. No prior studies are available for comparison at t he time of dictation. There is no radiodense/metallic foreign body seen in the region of the bony orb its. The bony orbits are intact as imaged. The visualized paranasal sinuses and the mastoid air cells appear clear. The imaged calvarium appears intact. IMPRESSION: There is no radiodense/metallic foreign body seen in the region of the bony orbits. ACT 112: Negative or not required by law. Electronically signed by: Marco Mancera M.D. 06/18/2021 12:51 PM
--- NOTE | 2021-06-18 13:26 | Hospitalist Progress Note ---
Date of Service June 18, 2021 Assessment & Plan (1) Neurogenic claudication due to lumbar spinal stenosis: (2) Hypertension: (3) Hyperlipidemia: (4) Osteoarthritis: (5) Chronic steroid use: Plan: per previous hospitalist note TYRONE Duran notes with addendum: This is a 65-year-old male who has significant past medical history of HTN, HLD, GERD, asthma who presents for elective lumbar procedure by Dr. Reece. Neurogenic claudication due to lumbar spinal stenosis Actual Procedures #1 lumbar decompression with bilateral medial facetectomies foraminotomies L2- L3, L3-L4, L4-5 and L5-S1. #2 posterior spinal fusion L2-S1. #3 placement posterior segmental instrumentation L2-S1. #4 interbody fusion L5-S1. #5 placement of Spira 12 x 26 mm cage L5-S1. #6 placement locally harvested morselized autograft in the posterior gutters. #7 placement is collagen sponge, and master graft in the posterior lateral gutters and I factor in the interbody space. POD #[address] Reece EBL 200 mL Pain/wound management per orthopedics Activity and therapy as per orthopedics Encourage incentive spirometry and wean oxygen as able Monitor hemoglobin, preop 15.2 4/15 Hg 13 stable overall DVT prophylaxis per Ortho SVC HTN resumed Lisinopril and Amlodipine hold HCTZ monitor BP HLD Continue statin Osteoarthritis Chronic systemic steroid use Patient states he takes prednisone 20 mg daily, last dose last evening He is ordered daily Decadron; therefore will hold Resume at discharge, monitor for adrenal insufficiency DVT ppx: Per ortho PCP: SUHAS Arboleda FULL CODE Pt was seen and examined in collaboration with Dr. Rhoades, please see addendum Thank you for this consultation. We will follow the patient with you during their hospital stay. You can reach a member of the [facility] Hospitalist Team 26/09 via hospitalist role on tiger text. Admission and Anticipated Discharge Date Admission Date: June 15, 2021 Subjective ff up for s/p back surgery etc seen resting in bed, comfortable in good spirits states he feels fine today no chest pain, dyspnea, palpitations, dizziness ambulates to the BR with no problems no back pain no other symptoms Review of Systems Review of Systems: all noted and negative except for above Physical Exam Physical Exam: General- oriented x 3, not in distress, speaks in sentences with no effort or accessory muscle use Eyes- anicteric Neck- no JVD Lungs- clear BS bilaterally, no rales/wheezes Heart- normal rate, regular rhythm; no murmurs Abdomen- normal bowel sounds, nondistended, soft, nontender Extremities- no pretibial edema, no calf tenderness Neuro- alert, oriented x 3; no gross focal neurologic deficits Skin- warm & dry Results & Data Results & Data ([facility]) Vital Signs (Past 12 Hours) Vital Signs Temp Pulse Resp BP Pulse Ox 06/18/21 07:24 37 C 66 18 150/96 H 95 all noted and reviewed including below
--- NOTE | 2021-06-18 15:37 | Magnetic Resonance Report ---
MRI OF THE CERVICAL SPINE WITHOUT IV CONTRAST CLINICAL HISTORY: Cervicalgia. Bilateral arm pain and numbness. COMPARISON STUDY: No priors. TECHNIQUE: MRI of the cervical spine is performed utilizing various T1 and T2-weighted sequences in t he axial and sagittal planes. IV contrast was not administered for this examination. The examination is degraded by motion artifact. FINDINGS: Cervical spine: Vertebral body height is maintained throughout the cervical spine. There is mild ante rolisthesis at C2-C3, C3-C4, C4-C5, and T1-T2. Minimal retrolisthesis is noted at C5-C6 and C6-C7. Th ere is straightening of the cervical lordosis with reversal centered at C5. The atlantodental articul ation appears maintained noting productive degenerative change. The spinous processes are intact. Mul tilevel degenerative endplate change is seen throughout the cervical spine. Endplate edema is noted a t C6-C7 and T2-T3. Vertebral discs: Degenerative disc desiccation and loss of height is seen throughout the cervical spi ne. Loss of height is moderate to severe at all levels between C3-C4 and T2-T3. Paraspinal cord: The cervical spinal cord is normal in morphology and signal intensity. C2-C3: A large posterior disc osteophyte complex eccentric to the right effaces the ventral cord. The minimum AP canal diameter at this level measures 6.5 mm. Uncovertebral and facet arthropathy contrib hai to severe right greater than left neural foraminal stenosis. This impinges on the exiting bilater al C3 nerve roots. C3-C4: A posterior disc osteophyte complex abuts the ventral cord. Uncovertebral and facet arthropath y contribute to severe bilateral neural foraminal stenosis. This likely impinges on the exiting bilat eral C4 nerve roots. C4-C5: A posterior disc osteophyte complex abuts the ventral cord. There is left lateral disc bulge. In conjunction with uncovertebral and facet arthropathy, there is severe left-sided neural foraminal stenosis with impingement on the exiting left C5 nerve root. Uncovertebral and facet arthropathy cont ribute to moderate neural foraminal narrowing on the right. C5-C6: A posterior disc osteophyte complex minimally effaces the ventral cord. There is right lateral disc extrusion. In conjunction with uncovertebral and facet arthropathy, there is severe right neura l foraminal stenosis with impingement on the exiting right C6 nerve root. Uncovertebral and facet art hropathy contribute to moderate neuroforaminal narrowing on the left. C6-C7: A posterior disc osteophyte complex minimally effaces the ventral cord. There is left lateral disc bulge. In conjunction with uncovertebral and facet arthropathy this contributes to severe left-s ided neural foraminal narrowing and impinges on the exiting left C7 nerve root. Uncovertebral and fac et arthropathy contribute to moderate to severe right-sided neural foraminal stenosis. C7-T1: A posterior disc osteophyte complex abuts the ventral cord. Uncovertebral and facet arthropath y contribute to severe right-sided neural foraminal stenosis with possible impingement on the exiting right C8 nerve root. There is mild neural foraminal narrowing on the left. T1-T2: Posterior disc bulge abuts the ventral cord. There is moderate bilateral right and mild left n eural foraminal stenosis. Soft tissues: The prevertebral and paraspinous soft tissues are within normal limits. Brain parenchyma: The imaged brain parenchyma at the skull base is within normal limits. IMPRESSION: 1. Severe multilevel cervical spondylosis as detailed above. See discussion for detailed level by uma robertson. 2. There is multilevel acquired compromise of the central canal, greatest at C2-C3 where there is eff acement of the ventral cord. 3. The cervical cord is normal in morphology and signal intensity. 4. Degenerative disc disease as above with multilevel degenerative endplate change as well as endplat e edema at several levels. This is greatest at C6-C7. 5. No destructive bony lesion is identified. Dictated: 06/18/2021 2:16 PM Transcribed: 06/18/2021 3:27 PM Alivia [id number] [facility] Electronically signed by: Marco Mancera M.D. 06/18/2021 3:34 PM
[2021-06-18] MEDS: DOCUSATE SODIUM/SENNA 50/8.6MG TAB PO SCH (21:27)
[2021-06-18] MEDS: PREGABALIN 75 MG CAP PO SCH (21:27)
[2021-06-19] MEDS: POLYETHYLENE (MIRALAX) 17 GM PACK PO SCH (05:59)
[2021-06-19] MEDS: PANTOprazole 40 MG TAB PO SCH (08:47)
[2021-06-19] MEDS: MELOXICAM 7.5 MG TAB PO SCH (08:47)
[2021-06-19] MEDS: ATORVASTATIN 20 MG TAB PO SCH (08:47)
[2021-06-19] MEDS: lisinopril 40 MG TAB PO SCH (08:47)
[2021-06-19] MEDS: ASPIRIN 81 MG ECTAB PO SCH (08:47)
[2021-06-19] MEDS: amLODIPine BESYLATE 5 MG TAB PO SCH (08:47)
[2021-06-19] MEDS: MULTIVITAMIN TAB PO SCH (08:47)
--- NOTE | 2021-06-19 11:25 | Discharge Summary ---
Date of Service June 19, 2021 Admission HPI Per Admitting Provider This is a 65-year-old male who presents with chronic persistent back and bilateral leg pain. Failing since course of nonoperative care is here for surgical invention. Principal Diagnosis Lumbar spinal stenosis with neurogenic claudication Discharge Data Allergies Allergy/AdvReac Type Severity Reaction Status Date / Time No Known Allergies Verified 06/15/21 07:58 Consultations 06/15/21 14:49 Consult Hospitalist Routine Procedures Performed Operation Date: 06/15/21 09:05 Actual Procedures p L2-S1 Decompression and Fusion, Interbody placement at L5-S1. Spinal Cord Monitoring(Not Applicable) - Yifan Reece DO Ordered Studies 06/15/21 09:05 FL lumbar spine 2-3V Routine 06/18/21 09:08 MR cervical spine wo con Routine Hospital Course (1) Neurogenic claudication due to lumbar spinal stenosis: Patient underwent multilevel lumbar decompression fusion tolerated this well stable orthopedic for possibly. I did have him undergo a day of bedrest. Then we began bed to chair and eventually physical therapy. He tolerated physical therapy well. Leg symptoms markedly improved. Denies any nausea vomiting or headaches. We also obtained an MRI of the cervical spine during his hospital stay secondary to his arm numbness. He does have severe multilevel cervical spinal stenosis. I discussed with him his findings in detail. We will be following him in the office for further treatment plan. At this time we will allow him to go home. Discharge orders instructions found in chart for them. Total Time Total Time Spent Total Time Spent (In Minutes): 20 minutes Discharge Plan Discharge Items Patient Disposition: Home - Self-Care Reason For Visit: Spinal Stenosis, Lumbar Region with Neurogenic Cla Discharge Diagnosis: Lumbar spinal stenosis with neurogenic claudication Activity: As commented below Non-emergency contact: Primary Care Provider Call non-emergency contact if: you have any medication questions Follow-up/Referrals: Yelena Nguyễn CRNP [Primary Care Provider] - Diet: Regular Addtl Attending Provider Instructions: ACTIVITY RECOMMENDATIONS: SELF CARE INSTRUCTIONS AFTER THORACIC/LUMBAR FUSIONS 1. You may walk to your tolerance. It is good exercise for your legs and back. Expect some back and intermittent leg aches and pains. 2. You may perform "counter-top" level activities (make a sandwich, hetal with a project, etc.). 3. No bending or lifting of more than 10 pounds or back twisting of any nature (roll like a log when turning in bed). 4. You may ride in a car for 20-30 minutes at a time. No driving until after your first visit with your doctor. 5. Frequent changes of position and restricting sitting to 30 minutes at a time will help limit the amount of back spasms and stiffness you may experience. 6. You may discontinue the use of ambulatory aids (cane, crutches, etc.) once your strength and confidence allow. 7. You may rigging helper the shower and let water strike your incision when you arrive home at least once daily. Do not take a tub bath, sit in a hot tub or go into a swimming pool until after your first recheck in the office. SPECIAL CARE INSTRUCTIONS: VERY IMPORTANT TO READ AND REVIEW A. Your surgical incision has been closed with a cosmetic suture under the skin that will dissolve in about 6 weeks. In 14 days, you can use a pair of clean scissors and cut the suture that is left outside of the skin at the ends of your incision. 1. The small skin tapes can be removed 7 days after surgery if they have not fallen off by that point. 2. You may keep the wound open to air as much as possible to promote healing after post-op day number 5 unless told otherwise by your doctor. 3. If you think the wound looks like it is becoming infected (redness or worsening drainage) and/or you are experiencing fever, chill or worsening back pain and muscle spasms, contact the office so that we may evaluate you as soon as possible. B. Complications are uncommon, but please contact us if you have any signs or symptoms of: 1. wound infection (fever higher than 102.5 degrees F, redness, separation of wound, drainage, or increasing pain from the incision) 2. blood clots in legs (pain, swelling, redness and warmth in legs) 3. urinary tract infection (fever higher than 102.5 degrees F, burning upon urination or increased frequency of urination) 4. nerve problems (inability to walk on your toes or heels, numbness, loss of bowel or bladder control) 5. any other symptoms that concern you C. Please call the office at if you have any concerns or questions about your operation or recovery. D. No smoking! Smoking drastically decreases the chance of a solid fusion. E. Do not take any anti-inflammatory medications (Indocin, Advil, Motrin, Aspirin, Naprosyn, etc.) as these may inhibit the chance of a solid fusion. Tylenol is okay to take for pain. MANAGING PAIN AFTER SPINAL SURGERY 1. Narcotic medication is intended for short-term use and will be provided for surgical pain. Surgical pain usually lasts for a period of 4-6 weeks. Narcotic medication includes Percocet, Vicodin, Darvocet, Tylenol #3 or Lortab. 2. Longer-term pain is more appropriately treated with non-narcotic medication such as Tylenol ES. 3. Muscle spasm is not appropriately treated with narcotics. Muscle relaxers such as Soma, Flexeril or Skelaxin can be used along with Tylenol ES. 4. Remember that we all live with some "aches and pains". This is not unusual or uncommon after an injury or as we get older. a. Back pain is expected and may include muscle spasms for 4 to 6 weeks after surgery. The pain should gradually improve. If the pain worsens for no apparent reason, please contact the office. b. Intermittent leg pain may also be experienced and should not be concerned about unless it worsens for no apparent reason. If so, please contact the office. 5. We will provide appropriate medication within the normal guidelines of their prescribed use. We will also be very cautious and aware of potential abuse and extended duration of patients' medication needs. a. Pain medications are for your comfort and to assist with sleep and rest so that the tissue can heal. They are not provided in order to return to normal activity and should not be used through the day. To do so or worsening pain at night can result from ongoing tissue damage and development of tolerance to the prescribed medicine. 6. Please allow 2-3 days to process refills. Prescriptions will not be mailed but must be picked up at the office. FOLLOW UP VISIT: Keep your scheduled follow-up appointment. Any questions, please call the office at . Pending Studies at Discharge: No Stand-Alone Forms: [employer], Smoking Cessation Medications and DC Order Prescriptions: New tramadol 50 mg tablet 50 mg PO Q6H PRN (Reason: pain, moderate) Qty: 30 RF: 0 oxycodone 5 mg tablet 5 mg PO Q6H PRN (Reason: pain, severe) Qty: 30 RF: 0 Continued fluticasone propion-salmeterol [Advair Diskus] 250-50 mcg/dose blister with device 1 inh inhalation BID Qty: 60 RF: 3 aspirin [Adult Low Dose Aspirin] 81 mg tablet,delayed release (DR/EC) 81 mg PO QAM RF: 0 multivitamin [Daily Multi-Vitamin] Tablet 1 tab PO QAM RF: 0 docusate sodium 100 mg capsule 200 mg PO HS RF: 0 albuterol sulfate 90 mcg/actuation HFA aerosol inhaler 1 inh inhalation QID PRN (Reason: shortness of breath or wheezing) Qty: 8.5 RF: 3 atorvastatin [Lipitor] 20 mg Tablet 20 mg PO QAM RF: 0 hydrochlorothiazide 50 mg Tablet 50 mg PO QAM RF: 0 lisinopril 40 mg Tablet 40 mg PO QAM RF: 0 pregabalin [Lyrica] 75 mg Capsule 75 mg PO QPM RF: 0 omeprazole 20 mg Tablet,Delayed Release (Dr/Ec) 20 mg PO QAM RF: 0 sennosides [Senokot] 8.6 mg Tablet 17.2 mg PO HS PRN (Reason: constipation) Qty: 28 RF: 0 amlodipine [Norvasc] 5 mg Tablet 5 mg PO QAM RF: 0 prednisone 20 mg tablet 20 mg PO HS RF: 0 Discontinued meloxicam 15 mg tablet 15 mg PO QAM RF: 0 Discharge Orders: Discharge Order (Routine); Ordered 06/19/21 Ordered By: Yifan Reece Admission Data Admit Date/Time: 06/15/21 12:27 Attending Provider: Yifan Reece Admit Provider: Yifan Reece Primary Care Provider: Yelena Nguyễn Other Providers: Kamilla Leija ; Dejuan Stevenson
--- NOTE | 2021-06-20 19:13 | Hospitalist Progress Note ---
Date of Service June 20, 2021 Assessment & Plan (1) Neurogenic claudication due to lumbar spinal stenosis: (2) Hypertension: (3) Hyperlipidemia: (4) Osteoarthritis: (5) Chronic steroid use: Plan: per previous hospitalist note TYRONE Bond'mercedes notes with addendum: This is a 65-year-old male who has significant past medical history of HTN, HLD, GERD, asthma who presents for elective lumbar procedure by Dr. Reece. Neurogenic claudication due to lumbar spinal stenosis Actual Procedures #1 lumbar decompression with bilateral medial facetectomies foraminotomies L2- L3, L3-L4, L4-5 and L5-S1. #2 posterior spinal fusion L2-S1. #3 placement posterior segmental instrumentation L2-S1. #4 interbody fusion L5-S1. #5 placement of Spira 12 x 26 mm cage L5-S1. #6 placement locally harvested morselized autograft in the posterior gutters. #7 placement is collagen sponge, and master graft in the posterior lateral gutters and I factor in the interbody space. POD #[address] Reece EBL 200 mL Pain/wound management per orthopedics Activity and therapy as per orthopedics Encourage incentive spirometry and wean oxygen as able Monitor hemoglobin, preop 15.2 4/15 Hg 13 stable overall DVT prophylaxis per Ortho SVC HTN resumed Lisinopril and Amlodipine hold HCTZ monitor BP HLD Continue statin Osteoarthritis Chronic systemic steroid use Patient states he takes prednisone 20 mg daily, last dose last evening He is ordered daily Decadron; therefore will hold Resume at discharge, monitor for adrenal insufficiency DVT ppx: Per ortho PCP: SUHAS Arboleda FULL CODE Pt was seen and examined in collaboration with Dr. Rhoades, please see addendum Thank you for this consultation. We will follow the patient with you during their hospital stay. You can reach a member of the [facility] Hospitalist Team 26/09 via hospitalist role on tiger text. Admission and Anticipated Discharge Date Admission Date: June 15, 2021
== END 2021-06-19 13:48 | disposition home or self-care (01) | DRG 455 ==
LOC: ASU 07:22 → 3E 12:27